=== PATIENT | male | born 1970 | race Caucasian/White ===

== ENCOUNTER 2017-01-01 22:59 | Inpatient (IN) ==
[2017-01-01] MEDS ORDERED: NS 1,000 ML IV PRN (23:23)
[2017-01-01] MEDS ORDERED: ZOFRAN IV ONE (23:25)
[2017-01-01 23:48] LABS: BASO% 0.1 % (0.0-0.8); EOS# 0.01 X1000 (0.0-0.7); HEMATOCRIT 53.5 % (42.0-52.0); HEMOGLOBIN 18.3 g/dL (14.0-18.0); IMM GRAN% 0.4 % (0.0-0.5); LYMPH# 2.35 X1000 (1.2-3.4); LYMPH% 10.4 % (20.5-51.1); MANUAL DIFF NEEDED? YES; MCH 30.3 PG (27-31); MCHC 34.2 g/dL (33-37); MCV 88.6 FL (81-99); MONO# 4.32 X1000 (0.11-0.59); MONO% 19.2 % (1.7-9.3); MPV 10.8 FL (7.4-10.4); NEUT% 69.9 % (42.2-75.2); PLT 214 X1000 (130-400); RBC 6.04 XMIL (4.7-6.1)
[2017-01-02] MEDS ORDERED: ZOSYN 3.375 GM/NS 3.375 GM/50 ML IVPB ONE (00:04)
[2017-01-02 00:05] LABS: BE -19.9 mmoll (-3.0-3.0); BLOOD TYPE ARTERIAL; METHB 1.6 % (0.0-1.5); O2(CT) 24.3 mL/dL (15.0-23.0); PCO2(98.6) 23 mmHg (35-45); PO2(98.6) 125 mmHg (60-100); SAMPLE BLOOD; THB 18.1 g/dL (11.5-17.4)
[2017-01-02 00:09] LABS: ALLEN TEST NO; DRAW SITE R FEMORAL; MODALITY VENTIMASK; pH(98.6) 7.12 (7.35-7.45)
[2017-01-02] MEDS ORDERED: ZOSYN 3.375 GM/NS 3.375 GM/50 ML IVPB IV ONE (00:11)
[2017-01-02] MEDS ORDERED: NS 1,000 ML IV PRN (00:12)
[2017-01-02 00:17] LABS: BANDS 10 % (0-1); BASO 0 % (0-1); EOS 0 % (1-10); LYMPHS 11 % (21-51); MONO 12 % (1-9)
[2017-01-02] MEDS ORDERED: ZOFRAN IV PRN (00:23)
[2017-01-02] MEDS ORDERED: NS 1,000 ML IV ONE ×3 (00:23→08:18)
--- NOTE | 2017-01-02 00:32 | PROVIDER DOCUMENTATION ---
This chart was entered by Susy Ahmadi Scribe, acting as scribe for Jj Barahona MD. HPI-General Adult - General Chief Complaint: Seizure Stated Complaint: SEIZURE, HX OF SAME Time Seen by Provider: 01/01/17 23:13 Source: other (residential staff) Unable to obtain history due to:: urgency (pt non-verbal) Allergies/Adverse Reactions: Patient Allergies Allergy/AdvReac Type Severity Reaction Status Date / Time methylphenidate HCl * Allergy Unknown Verified 04/27/14 14:40 [From Ritalin] Home Medications: Home Medication List Medication Instructions Recorded Confirmed Last Taken Type Divalproex [Depakote] 1,000 mg PO BID 04/27/14 04/28/14 01/01/17 History Fluoxetine [Prozac] 20 mg PO DAILY 04/27/14 04/28/14 01/01/17 History Fluticasone 27.5 Mcg Nasal Spr 1 spray MADELYN DAILY 04/27/14 04/28/14 01/01/17 History [Veramyst Nasal [place]] Levetiracetam [Keppra] 500 mg PO BID 04/27/14 04/28/14 01/01/17 History Loratadine 10 mg PO DAILY 04/27/14 04/28/14 01/01/17 History Omeprazole 40 mg PO DAILY 04/27/14 04/28/14 01/01/17 History Quetiapine Fumarate [Seroquel] 200 mg PO TID 04/27/14 04/28/14 01/01/17 History Topiramate [Topamax] 200 mg PO BID 04/27/14 04/28/14 01/01/17 History Ascorbic Acid [Vitamin C] 250 mg PO DAILY 01/01/17 01/01/17 01/01/17 History Icosapent Ethyl [Vascepa] 1,000 mg PO BID 01/01/17 01/01/17 01/01/17 History Levothyroxine [Synthroid] 25 mcg PO QAM 01/01/17 01/01/17 01/01/17 History Pravastatin Sodium 40 mg PO DAILY 01/01/17 01/01/17 01/01/17 History - History of Present Illness -Gen Adult Nature of Presenting Problems: Per residential staff, pt has had diarrhea since about 1400 this afternoon and has not eaten or drank anything since before lunch. She states that pt tonight, while they were changing his bed, he went limp with 2 other staff members holding him up and had a blank stare. She states before that his breathing had become different and mental status changed. Severity: reports: moderate Onset/Duration: reports: this afternoon Timing: reports: still present Associated Symptoms: reports: diarrhea Similar Symptoms Previously?: No Recently seen or treated by another doctor?: No Review of Systems - Adult - REVIEW OF SYSTEMS - ADULT ROS:: unobtainable per condition (pt non-verbal) Constitutional: reports: no symptoms reported Eyes: reports: no symptoms reported Ears, Nose, Mouth & Throat: reports: no symptoms reported Cardiovascular: reports: no symptoms reported Respiratory: reports: no symptoms reported Gastrointestinal: reports: diarrhea. denies: vomiting Genitourinary: reports: no symptoms reported Musculoskeletal: reports: no symptoms reported Integumentary: reports: no symptoms reported Neurological: reports: no symptoms reported Psychiatric: reports: no symptoms reported Endocrine: reports: no symptoms reported Hematologic/Lymphatic: reports: no symptoms reported Allergic/Immunologic: reports: no symptoms reported All Other Systems: Reviewed and Negative Past History - Adult - PAST MEDICAL HISTORY-ADULT Review of Records: reports: Nursing Assessment Review, Medications Reviewed Major Childhood Illnesses: reports: denies history Cardiovascular: reports: HTN Neurological: reports: Seizures/Epilepsy Psychiatric: reports: other (MR) - PRIOR SURGERIES/PROCEDURES Surgical/Procedure History: reports: none - IMMUNIZATION STATUS Childhood Immunizations: See Nurse Assessment Flu Vaccine: See Nurse Assessment - SOCIAL HISTORY Smoking: non-smoker Substance Use: none/never Alcohol Use Frequency: never Physical Exam-General - PHYSICAL EXAM-ADULT Initial Vital Signs Reviewed: Yes - CONSTITUTIONAL General Appearance: alert - RESPIRATORY Respiratory: rhonchi (upper airway), other (tachypnea) - CARDIOVASCULAR Cardiovascular: tachycardia - GASTROINTESTINAL (ABDOMEN) Abdominal Exam: non tender, abnormal bowel sounds (hyperactive) - SKIN Integumentary: mottled, pallor Progress - PLAN OF CARE/RESULTS Progress/Plan/Lab Results: Vital Signs - 8 hr 01/01/17 23:01 Temperature 98.0 F Orders Category Date Time Status CBC WITH DIFF [HEME] Stat Lab 01/01/17 23:13 Ordered COMPREHENSIVE METABOLIC PANEL [CHEM] Stat Lab 01/01/17 23:[address] W/POSS RFLX CULT [URINALYSIS] Stat Lab 01/01/17 23:13 Uncollected Result Diagrams: 01/01/17 23:30 - CONSULTS/PCP/HOSPITALIST Notification #1 *Consult/PCP/Hospitalist*: Dr. Ospina(hospitalist) Time Discussed: 00:16 Consult Disposition: Admit Departure - Departure Time of Disposition Decision: 00:30 DIAGNOSIS: Sepsis with hypotension Disposition: ADMITTED INPATIENT 09 Certified Medical Emergency: Emergent Condition: Serious Referrals and Follow-Ups: Sandra Trujillo [Primary Care Provider] - - Critical Care Note This patient required my direct & personal management of CC.: Yes Total Time (mins): 120 Critical Care Statement: This patient required my direct personal management to treat or rule out processes, the absence of which, could potentiallly result in sudden, clinically significant life or limb threatening deterioration. This chart was documented by the indicated scribe, (Susy Ahmadi Scribe) and accurately reflects the services I performed and decisions made by me, Jj Barahona MD, as attested by the provider's signature.
[2017-01-02 01:13] LABS: BILIRUBIN URINE 2+ (NEGATIVE); BLOOD URINE 4+ (NEGATIVE); CLARITY CLEAR (CLEAR); COLOR BROWN; GLUCOSE URINE NEGATIVE (NEGATIVE); LEUKOCYTES URINE 1+ (NEGATIVE); NITRITE URINE POSITIVE (NEGATIVE); PH URINE 6.5; PROTEIN URINE 1+(30 mg/dL) mg/dL (NEGATIVE)
[2017-01-02 01:15] LABS: URINE CULTURE PL NEEDED? YES; URINE EPITHELIAL CELLS <10 /HPF (<10); URINE WBC <10 /HPF (<10)
[2017-01-02 01:16] LABS: URINE SOURCE CATH; UROBILINOGEN URINE 4+(12 mg/dL)
[2017-01-02 01:22] LABS: AGAP 17; ALBUMIN 2.4 g/dL (3.5-5.0); ALKALINE PHOSPHATASE 42 U/L (32-122); BUN 45 mg/dL (8-22); CALCIUM 7.5 mg/dL (8.8-10.2); CHLORIDE 115 mmol/L (98-107); COSMO 298; GOT 16 U/L (10-34); GPT 8 U/L (10-44); POTASSIUM 3.2 mmol/L (3.5-5.1); SODIUM 143 mmol/L (136-145); TCO2 12 mmol/L (25-35); TOTAL PROTEIN 5.2 g/dL (6.3-8.3)
[2017-01-02 05:05] LABS: OCCULT BLOOD 1 POSITIVE (NEGATIVE)
[2017-01-02] MEDS ORDERED: LEVOPHED 8 MG in D5 1/2 NS 250 ML IV SCH (06:30)
[2017-01-02 06:42] LABS: MANUAL DIFF NEEDED? NO
[2017-01-02 06:54] LABS: BE -14.9 mmoll (-3.0-3.0); BLOOD TYPE ARTERIAL; DRAW SITE R BRACHIAL; METHB 1.8 % (0.0-1.5); O2(CT) 21.6 mL/dL (15.0-23.0); PCO2(98.6) 23 mmHg (35-45); PO2(98.6) 85 mmHg (60-100); SAMPLE BLOOD; SAO2 96.6 % (95.0-100.0); THB 16.4 g/dL (11.5-17.4); pH(98.6) 7.25 (7.35-7.45)
[2017-01-02 06:57] LABS: EOS# 0.01 X1000 (0.0-0.7); EOS% 0.1 % (0.0-10.0); HEMATOCRIT 47.8 % (42.0-52.0); HEMOGLOBIN 16.1 g/dL (14.0-18.0); IMM GRAN# 0.02 X1000 (0.0-0.04); IMM GRAN% 0.2 % (0.0-0.5); LYMPH# 0.94 X1000 (1.2-3.4); LYMPH% 11.2 % (20.5-51.1); MCH 30.4 PG (27-31); MCHC 33.7 g/dL (33-37); MCV 90.2 FL (81-99); MONO# 1.19 X1000 (0.11-0.59); MONO% 14.1 % (1.7-9.3); MPV 11.7 FL (7.4-10.4); NEUT% 74.4 % (42.2-75.2); PLT 116 X1000 (130-400)
[2017-01-02 06:58] LABS: ALLEN TEST NO; MODALITY VENTIMASK
[2017-01-02] MEDS ORDERED: ZOSYN 3.375 GM/NS 3.375 GM/50 ML IVPB IV SCH (07:00)
[2017-01-02 07:24] LABS: AGAP 19; BUN 48 mg/dL (8-22); CALCIUM 8.1 mg/dL (8.8-10.2); CHLORIDE 116 mmol/L (98-107); COSMO 305; POTASSIUM 4.2 mmol/L (3.5-5.1); SODIUM 146 mmol/L (136-145); TCO2 12 mmol/L (25-35)
[2017-01-02] MEDS ORDERED: VANCOMYCIN IV PER PHARMACY MISC SCH (08:00)
--- NOTE | 2017-01-02 08:52 | Diag Imaging Result Document ---
PROCEDURE NAME: CHEST-PORTABLE - 01/02/2017 SINGLE FRONTAL RADIOGRAPH OF THE CHEST: COMPARISON: 04/27/2014. FINDINGS: Inspiration is very suboptimal. There is opacity at the left lung base suggesting a likely effusion with adjacent atelectasis and/or infiltrate. The right lung appears to be clear. Cardiac silhouette is grossly unremarkable considering AP technique. IMPRESSION: 1. Opacification at the left lung base suggesting a possible effusion with adjacent atelectasis and/or infiltrate. Consider followup PA and lateral radiograph. 2. Low lung volumes.
[2017-01-02] MEDS ORDERED: SODIUM BICARBONATE 8.4% 150 MEQ in D5W 1,000 ML IV SCH (09:00)
[2017-01-02] MEDS ORDERED: VANCOMYCIN 2,200 MG in NS 500 ML IV ONE (09:00)
--- NOTE | 2017-01-02 09:33 | Diag Imaging Result Document ---
PROCEDURE NAME: ABDOMEN/PELVIS W/CONTRAST - 01/02/2017 CT ABDOMEN AND PELVIS WITH IV CONTRAST: COMPARISON: None available. FINDINGS: There is left basilar atelectasis and trace atelectasis at the right lung base. There is focal mild thickening at the fundus of the gallbladder. It is nonspecific. Consider gallbladder ultrasound followup. There is no surrounding inflammatory change. There are multiple prominent stones involving the left renal collecting system with a staghorn calculus at the lower pole. The left kidney is atrophic as compared to the right. There is no evidence of hydronephrosis, however. There is also a punctate nonobstructing intrarenal stone in the right kidney. There is thickening and inflammatory change involving the sigmoid colon and the rectum consistent with nonspecific colitis and proctitis. Etiology are most likely infectious or inflammatory. There is a small amount of fluid that is layering in the pelvis. There are fluid- filled loops of small bowel and a few air-fluid levels. There is nothing that would necessarily indicate obstruction. This is likely due to ileus. The urinary bladder is nondistended and a Almazan catheter is in place. The remainder of the solid viscera of the abdomen and pelvis and the remainder of the GI tract is essentially unremarkable. IMPRESSION: 1. Nonspecific proctitis and sigmoid colitis as described, most likely infectious or inflammatory. 2. Left nephrolithiasis with a large nonobstructing staghorn calculus on the left and left renal atrophy. 3. Nonspecific focal thickening at the fundus of the gallbladder. Please see above discussion. 4. Other incidental/nonacute findings detailed above. [facility]
[2017-01-02] MEDS: SODIUM BICARBONATE 8.4% 150 MEQ in D5W 1,000 ML IV SCH (10:14)
[2017-01-02] MEDS: LEVOPHED 16 MG in D5 1/2 NS 500 ML IV SCH ×2 (11:41→22:44)
[2017-01-02] MEDS: TYLENOL PR PRN ×3 (12:04→23:56)
[2017-01-02] MEDS: FLAGYL 500 MG/NS 500 MG/100 ML IVPB IV SCH ×2 (13:43→20:24)
[2017-01-02] MEDS ORDERED: SODIUM CHLORIDE 0.9% INJ PRN (13:45)
--- NOTE | 2017-01-02 14:24 | HISTORY AND PHYSICAL ---
CHIEF COMPLAINT: Seizure, altered mental status, and diarrhea. HISTORY OF PRESENT ILLNESS: This is a 46-year-old male with a past medical history of mental retardation, seizure disorder, hypertension, who was brought in to the hospital with a chief complaint of diarrhea that started yesterday around 2 p.m. All this information was collected by the senior care staff. Apparently, also the patient has not eaten or drank anything since yesterday before lunch. Apparently this patient also had a seizure. This patient went limp with two other staff members holding him up and had a blank stare. Right before that happened, he started having tachypnea and mental status changes. At the emergency department, he was found to have a positive urinalysis for infection, occult blood in the stool, a pH of 7.12, with a bicarb of 9.3, and lactate of 5.5. A CT of the abdomen was performed today that showed nonspecific proctitis and sigmoid colitis, likely infectious or inflammatory. Also, he has left nephrolithiasis with a large non-obstructive staghorn calculus on the left and left renal atrophy. Nonspecific focal thickening at the fundus of the gallbladder. This patient is currently in the ICU unit using a nonrebreathing mask and on pressors. He was admitted because of sepsis and altered mental status. REVIEW OF SYSTEMS: The 14 point of review of systems were reviewed. All negative, except as per history of present illness. HOME MEDICATIONS: Depakote 1000 mg p.o. b.i.d., Prozac 20 mg p.o. daily, fluticasone 1 spray nasally daily, Keppra 500 mg p.o. b.i.d., loratadine 10 mg p.o. daily, omeprazole 40 mg p.o. daily, Seroquel 200 mg p.o. t.i.d., Topamax 200 mg p.o. b.i.d., vitamin C 250 mg p.o. daily, Vascepa 1000 p.o. b.i.d., levothyroxine 25 mg p.o. q.a.m., and pravastatin 40 mg p.o. daily. PAST MEDICAL HISTORY: Mental retardation, hypertension, seizure disorder, and hypothyroidism. PAST SURGICAL HISTORY: None. SOCIAL HISTORY: Nonsmoker. No drugs. No alcohol. PHYSICAL EXAMINATION: HEENT: Head normocephalic. No trauma. Pupils equal, round, and reactive to light and accommodation. NECK: Supple. No jugular venous distention. No masses. Central trachea. CHEST: Bilateral coarse breath sounds. Decreased breath sounds at the bases with rales. ABDOMEN: Soft, distended, generalized tenderness to palpation. Positive bowel sounds. EXTREMITIES: No edema. No clubbing. No cyanosis. NEUROLOGICAL EXAMINATION: This patient is lethargic. He has some reaction with pain stimulation and movement. VITAL SIGNS: Temperature 101.6 degrees, pulse 164, respiratory rate 47, blood pressure 97/58, O2 saturation 92 on a Venturi mask, 50% oxygen flow. LABORATORY: On admission, WBC 22.5, hemoglobin 18.3, hematocrit 53.5, platelets 214,000, bands 10. On 01/02/2017; sodium 146, potassium 4.2, chloride 116, bicarbonate 12, BUN 48, creatinine 1.1, glucose 127. Calcium 8.1, albumin 2.4. ASSESSMENT AND PLAN: 1. Septic shock, likely related to urinary tract infection and/or infectious colitis. This patient has been placed on vancomycin, metronidazole, and levofloxacin. We will continue checking the CBC and CMP daily. 2. Respiratory failure. This patient, at this moment, has a nonrebreathing mask and his oxygen saturation has been stable, but this patient is tachypneic. We will continue to monitor. We will continue providing IV fluids as well. 3. Metabolic encephalopathy on a patient with mental retardation. As per the caregivers, this is not his baseline and this is likely related to septic shock and infection. 4. Metabolic encephalopathy, likely secondary to septic shock, plus infection. Continue to monitor. 5. Colitis at the level of the sigmoid, likely related to an infectious process versus inflammation. We will continue with the antibiotics. 6. Urinary tract infection. This patient has been placed on levofloxacin. Also this patient is being covered with vancomycin. 7. Dehydration. Continue with IV fluids. This patient also has been placed on bicarbonate drip. 8. Thrombocytopenia. To monitor. 9. Mental retardation. Aware. 10. Hypertension. Actually, this patient is having low blood pressure. 11. Hypothyroidism. I will put this patient on IV levothyroxine. Normally he is getting 25 mcg daily p.o. I will put this patient on 12.5 IV daily. CODE STATUS: This patient is DNR level 2. We are allowed only to use medications with him. Further recommendations depending on this patient's hospital course. cc: Emory Garza MD
[2017-01-02] MEDS ORDERED: ALBUMIN 25% IV ONE (14:37)
[2017-01-02] MEDS: LEVAQUIN 750 MG/D5W 750 MG/150 ML IVPB IV SCH (15:34)
--- NOTE | 2017-01-02 16:31 | EKG Report ---
Test Performed on : 01/02/2017 3:04:46 PM Test Reason : ST vs afib Blood Pressure : / mmHG Vent. Rate : 162 BPM Atrial Rate : 163 BPM P-R Int : 120 ms QRS Dur : 078 ms QT Int : 316 ms P-R-T Axes : 004 -54 071 degrees QTc Int : 518 ms Sinus tachycardia. with occasional premature ventricular complexes. Left anterior fascicular block Anterior infarct , age undetermined ST \T\ T wave abnormality, consider lateral ischemia Abnormal ECG When compared with ECG of 28-APR-2014 07:37, premature ventricular complexes. are now present Vent. rate has increased BY 72 BPM Anterior infarct is now present T wave inversion no longer evident in Anterior leads Confirmed by Asaf Peterson MD ([id number]) on 01/23/2017 10:13:00 PM
[2017-01-02] MEDS: MORPHINE IV PRN ×2 (20:24→23:56)
[2017-01-03] MEDS: FLAGYL 500 MG/NS 500 MG/100 ML IVPB IV SCH ×4 (01:48→19:50)
[2017-01-03] MEDS: TYLENOL PR PRN (04:08)
[2017-01-03] MEDS: MORPHINE IV PRN (04:08)
[2017-01-03] MEDS: SYNTHROID IV SCH (06:11)
[2017-01-03 06:49] LABS: BASO% 0.2 % (0.0-0.8); EOS# 0.04 X1000 (0.0-0.7); EOS% 0.8 % (0.0-10.0); HEMATOCRIT 40.6 % (42.0-52.0); HEMOGLOBIN 13.5 g/dL (14.0-18.0); IMM GRAN# 0.38 X1000 (0.0-0.04); IMM GRAN% 7.9 % (0.0-0.5); LYMPH# 0.66 X1000 (1.2-3.4); LYMPH% 13.6 % (20.5-51.1); MANUAL DIFF NEEDED? YES; MCH 30.3 PG (27-31); MCHC 33.3 g/dL (33-37); MONO# 1.01 X1000 (0.11-0.59); MONO% 20.9 % (1.7-9.3); MPV 11.3 FL (7.4-10.4); NEUT% 56.6 % (42.2-75.2); PLT 82 X1000 (130-400); RBC 4.46 XMIL (4.7-6.1)
[2017-01-03 07:11] LABS: AGAP 16; BUN 50 mg/dL (8-22); CALCIUM 7.8 mg/dL (8.8-10.2); CHLORIDE 113 mmol/L (98-107); COSMO 301; SODIUM 144 mmol/L (136-145); TCO2 14 mmol/L (25-35)
[2017-01-03 07:12] LABS: POTASSIUM 2.5 mmol/L (3.5-5.1)
[2017-01-03 07:24] LABS: BANDS 10 % (0-1); LYMPHS 10 % (21-51); MONO 20 % (1-9)
[2017-01-03] MEDS: POTASSIUM CHLORIDE 20 MEQ/SWI 20 MEQ/100 ML IVPB IV SCH ×4 (07:50→22:55)
[2017-01-03] MEDS ORDERED: VANCOMYCIN 1,600 MG in NS 250 ML IV SCH (09:00)
--- NOTE | 2017-01-03 09:45 | PROGRESS NOTE ---
DATE: 01/03/2017 SUBJECTIVE: This patient is resting comfortably on the bed. His heart rate is around 130 but is much better compared with yesterday, yesterday was 160s. Respiratory rate decreased from 40s to 20s. He is not complaining of pain at this moment but this patient has mental retardation. His belly is still mildly distended and painful to palpation. Yesterday I talked to his sister and she said that he has a past medical history of Crohn's disease. I did not have that on my records. I am not quite sure if this patient is having a flare. Since this patient is getting better and since this patient looks better today, I will continue with the same management. I will add Clinimix to his medications. OBJECTIVE: Vital Signs: Temperature 100.9 degrees, pulse 142, respiratory rate 28, blood pressure 91/62, oxygen saturation 97% on BiPAP. HEENT: Head normocephalic. No trauma. PERRLA. Neck: Supple. No JVD. No masses. Central trachea. Chest: Bilateral coarse breath sounds with scattered rhonchi and decreased breath sounds at the bases. Abdomen: Soft. Mild to moderately distended. Generalized tenderness to palpation. Positive bowel sounds. Extremities: No edema. No clubbing. No cyanosis. Neurological: This patient is lethargic. He has a baseline mental retardation. He moves with pain stimulation. LABORATORY: WBC 4.8, hemoglobin 13.5, hematocrit 40.6, platelets 82,000. Sodium 144, potassium 2.5, chloride 113, bicarbonate 14, BUN 50, creatinine 1.2, glucose 116, calcium 7.8. ASSESSMENT AND PLAN: 1. Septic shock. This patient is still on pressors. This is likely related to UTI and pneumonia and/or infectious colitis. This patient has been placed on vancomycin, metronidazole, and levofloxacin. Will continue checking his CBC and CMP daily. His vital signs look better today. 2. Respiratory failure. This patient at this moment is on a BiPAP machine. We will continue with the same management. 3. Metabolic encephalopathy in a patient with mental retardation. As per the caregivers, this is not his baseline. This is likely related to septic shock. 4. Metabolic acidosis, likely secondary to septic shock. Continue to monitor. 5. Proctocolitis involving the sigmoid colon. Likely related to an infectious process versus inflammation. The sister told me that he has a past medical history of Crohn's disease; I did not have that on my records. I am not going to start steroids at this moment. This patient is getting better with this treatment but he has pain upon palpation. Probably we need to start treatment in the near future. 6. Urinary tract infection. This patient has been placed on antibiotics. Continue with the same management. 7. Dehydration. Continue with IV fluids. This patient is on a bicarbonate drip and Clinimix. 8. Thrombocytopenia. Monitor. 9. Mental retardation. Aware. 10. Hypertension. Actually this patient is on pressors for low blood pressure. 11. Hypothyroidism. Continue with IV levothyroxine. 12. Code status. This patient is DNR level 2. CRITICAL CARE TIME: 40 minutes. cc: Emory Garza MD
[2017-01-03] MEDS: SODIUM BICARBONATE 8.4% 150 MEQ in D5W 1,000 ML IV SCH (09:49)
[2017-01-03] MEDS ORDERED: CLINIMIX E 4.25%-5% SOLUTION 1,000 ML IV SCH (12:58)
[2017-01-03] MEDS: LEVAQUIN 750 MG/D5W 750 MG/150 ML IVPB IV SCH (16:05)
[2017-01-04] MEDS: FLAGYL 500 MG/NS 500 MG/100 ML IVPB IV SCH ×4 (00:30→18:34)
[2017-01-04] MEDS: SYNTHROID IV SCH (06:31)
[2017-01-04 07:08] LABS: BASO% 0.3 % (0.0-0.8); EOS# 0.03 X1000 (0.0-0.7); EOS% 0.8 % (0.0-10.0); HEMATOCRIT 36.3 % (42.0-52.0); HEMOGLOBIN 12.4 g/dL (14.0-18.0); IMM GRAN# 0.04 X1000 (0.0-0.04); LYMPH# 0.61 X1000 (1.2-3.4); LYMPH% 15.8 % (20.5-51.1); MANUAL DIFF NEEDED? YES; MCH 30.9 PG (27-31); MCHC 34.2 g/dL (33-37); MCV 90.5 FL (81-99); MONO# 0.39 X1000 (0.11-0.59); MONO% 10.1 % (1.7-9.3); MPV 10.7 FL (7.4-10.4); PLT 58 X1000 (130-400); RBC 4.01 XMIL (4.7-6.1)
[2017-01-04 07:46] LABS: AGAP 10; BUN 27 mg/dL (8-22); CALCIUM 8.2 mg/dL (8.8-10.2); CHLORIDE 117 mmol/L (98-107); COSMO 299; POTASSIUM 3.5 mmol/L (3.5-5.1); SODIUM 147 mmol/L (136-145); TCO2 20 mmol/L (25-35)
[2017-01-04] MEDS ORDERED: KLOR-CON PO ONE (08:33)
[2017-01-04 08:52] LABS: BANDS 8 % (0-1); LYMPHS 18 % (21-51)
[2017-01-04 08:53] LABS: HYPOCHROM OCCASIONAL; MONO 6 % (1-9)
[2017-01-04] MEDS: D5W 1,000 ML IV SCH ×2 (09:31→22:21)
[2017-01-04] MEDS: POTASSIUM CHLORIDE 20 MEQ/SWI 20 MEQ/100 ML IVPB IV SCH ×2 (10:25→12:24)
--- NOTE | 2017-01-04 12:46 | PROGRESS NOTE ---
DATE: 01/04/2017 SUBJECTIVE: Today, Mr. Dennison looks a whole lot better. There was a sitter from the long-term at his bedside. He continues to be shouting and groaning "robert kunz," but he calms down and is able to eat ice with the sitter. OBJECTIVE: Vital signs: Blood pressure 127/73, pulse 103, respirations 22, temperature 98.3 degrees. General: Mr. Dennison is a 46-year-old male. He was in bed. Did not seem to be in any remarkable distress. HEENT: Mucosa pink and moist. Anicteric. Acyanotic. Neck: Supple. Chest: Good air entry bilaterally with a few bibasilar crepitations. Cardiovascular: Regular rate and rhythm. Abdomen: Soft, slightly distended, but nontender. Bowel sounds are present. Extremities: No pedal edema. Central Nervous System: Patient is alert. He is nonverbal, but will shout and groan when you move his extremities. LABORATORY DATA: WBC 3.87, hemoglobin 12.4, platelet count 58,000. There is 8% bands on the peripheral smear. Chemistry: Sodium 147, potassium 3.5, chloride 117, bicarbonate 28, BUN 27, and creatinine 0.4. Stool occult blood is positive. So far, blood cultures have been negative. IMAGING STUDIES: A chest x-ray showed opacification at the lung bases suggestive of possible effusion with adjacent atelectasis and/or infiltrates. Low lung volumes. A CT scan of the abdomen and pelvis showed nonspecific proctitis and sigmoid colitis, as described, most likely infectious. There is left nephrolithiasis. ASSESSMENT ON PRESENTATION: 1. Septic shock. The patient needed pressors. Is currently off pressors. Blood cultures have all been negative. I think the source of this is coming from the severe left-sided colitis. 2. Respiratory failure (hypoxemic) which I think is driven by the sepsis. 3. Severe metabolic acidosis due to lactic acid from sepsis. 4. Left-sided colitis (sigmoid and proctocolitis). This is deemed infectious; however, inflammatory bowel disease cannot be excluded at this point. We will continue with the current antibiotics. I do not see any stool cultures done, but the patient is doing a whole lot better with the IV antibiotics. I think at a later date the patient would have to have a scope to make sure there is no inflammatory bowel disease. Will send off the inflammatory bowel disease panel for further testing. 5. Hypernatremia with hyperchloremia. We will discontinue the bicarbonate and only use D5 for baseline hydration to address the tonicity and the hyperchloremia. 6. Thrombocytopenia. This continues to worsen. I reviewed the current medication profile and I do not see anything that could potentially cause that. I think this is all driven by the severe sepsis. We will keep a very close eye on that. Of note, patient is not on any heparin or any blood thinner. Will be using the compression stockings for deep vein thrombosis prophylaxis. 7. Dehydration. Will continue IV fluids. 8. Mental retardation, needing total care. 9. Hypothyroidism. We will continue with the IV levothyroxine. So, in general, I think Mr. Dennison is doing a whole lot better. The chest x-ray and blood cultures have not shown any evidence of pneumonia or Methicillin-resistant Staphylococcus aureus infection. I will therefore go ahead and discontinue the vancomycin. We will, however, continue with the levofloxacin and the metronidazole for the colitis. We will continue with the IV fluids. The patient has shown remarkable improvement. He is tolerating the ice chips, so will go ahead and start feeding him whilst we will be cutting down on the Clinimix. cc: Jovani Yung MD
[2017-01-04] MEDS: LEVAQUIN 750 MG/D5W 750 MG/150 ML IVPB IV SCH (15:47)
[2017-01-04] MEDS: TYLENOL PO PRN (18:43)
[2017-01-05] MEDS: FLAGYL 500 MG/NS 500 MG/100 ML IVPB IV SCH ×4 (00:48→20:30)
[2017-01-05] MEDS: TYLENOL PO PRN ×2 (02:09→12:06)
[2017-01-05] MEDS: SYNTHROID IV SCH (06:00)
[2017-01-05 08:31] LABS: AGAP 11; BUN 16 mg/dL (8-22); CALCIUM 8.3 mg/dL (8.8-10.2); CHLORIDE 115 mmol/L (98-107); COSMO 288; IRON SATURATION 35 %; MAGNESIUM 1.7 mg/dL (1.5-2.7); POTASSIUM 3.6 mmol/L (3.5-5.1); SODIUM 144 mmol/L (136-145); TCO2 18 mmol/L (25-35); TIBC 131 ug/dL; TOTAL IRON 46 ug/dL (53-167); UNBOUND IRON 85 ug/dL (112-346)
[2017-01-05 08:46] LABS: BASO% 0.2 % (0.0-0.8); EOS# 0.05 X1000 (0.0-0.7); HEMATOCRIT 35.2 % (42.0-52.0); HEMOGLOBIN 11.9 g/dL (14.0-18.0); IMM GRAN# 0.03 X1000 (0.0-0.04); IMM GRAN% 0.6 % (0.0-0.5); LYMPH# 1.06 X1000 (1.2-3.4); LYMPH% 20.5 % (20.5-51.1); MANUAL DIFF NEEDED? YES; MCHC 33.8 g/dL (33-37); MCV 88.7 FL (81-99); MONO# 0.48 X1000 (0.11-0.59); MONO% 9.3 % (1.7-9.3); MPV 10.8 FL (7.4-10.4); NEUT% 68.4 % (42.2-75.2); PLT 84 X1000 (130-400); RBC 3.97 XMIL (4.7-6.1)
[2017-01-05] MEDS ORDERED: MAGNESIUM SULFATE 2 GM/S.W.I. 2 GM/50 ML IVPB IV ONE (10:10)
[2017-01-05 10:22] LABS: LYMPHS 21 % (21-51); MONO 5 % (1-9)
--- NOTE | 2017-01-05 10:57 | PROGRESS NOTE ---
DATE: 01/05/2017 SUBJECTIVE: Today Mr. Dennison was very delightful and smiling. There is a picking crew supervisor at the bedside, who said the patient has been very happy this morning. OBJECTIVE: Vital signs: Blood pressure is 118/69, pulse of 100, respirations 30, temperature is 97.9 degrees. Of note patient had a mild elevation of temperature of 100.6 degrees earlier this morning. Also from the nursing staff, they tried to feed the patient some Marfan, and it looks like he took he was going to check on that. General: Mr. Dennison is a 46-year-old male. He is in bed, not seemingly distressed. HEENT: Mucosa is pink and moist. Anicteric. Acyanotic. Neck: Supple. Chest: Air entry is bilaterally reduced. There is diffuse bilateral coarse crackles and rhonchi. Cardiovascular: Regular rate and rhythm. Abdomen: Soft. It is distended and hilar. Patient can grimace and shout when you palpate the abdomen. COOK FISHING VESSEL: Patient is awake and alert. He is nonverbal. LABORATORY DATA: WBC is 5.18, hemoglobin is 11.9, platelet count of 84, slightly coming up. Chemistry: Sodium is 144, potassium is 3.6, chloride is 115 slightly improved from yesterday with a bicarbonate of 18. The calcium is 8.3, phosphorus is 2.0, magnesium is 1.7. ASSESSMENT: 1. Septic shock. The patient is now off pressors. Blood pressure continues to be stable. So far blood cultures have been negative for 24 hours and urine culture is also negative. We suspect the source of this is from the left side colitis. 2. Severe lactic acidosis on presentation due to sepsis. 3. Severe left-sided colitis (sigmoid and proctocolitis). Patient is currently on levofloxacin and metronidazole. Seems to be doing a lot better. 4. Acute hypoxemic respiratory failure. I think this is likely due to aspiration pneumonia. We would repeat a chest x-ray. We will also get swallowing evaluation to determine what consistency of food patient will be able to tolerate without any major risk. 5. Hypernatremia and hyperchloremia. This is improving. We will continue with the D 5 baseline hydration of fluid. 6. Thrombocytopenia due to sepsis. This is improving. 7. Mental retardation noted. 8. Hypothyroidism. We will check on the patient's thyroid stimulating hormone. Continue with the current levothyroxine and make the changes accordingly depending on the thyroid stimulating hormone results. 9. Abdominal distention. I think the patient does have some ileus. I just saw that he had made some bowel movement and it is liquid. We would do some stool studies and also do a KUB to make sure that there is not any mechanical obstruction and that the diarrhea we are looking at is not overflow incontinence. We would also make sure we replace all the electrolyte abnormalities, including the borderline low potassium and the low magnesium which could potentially cause ileus. 10. Hypocalcemia with hypophosphatemia. I think this is likely due to underlying vitamin D deficiency. We will go ahead and recheck on that and replace it accordingly. PLAN: In general, Mr. Dennison is clinically stable. We are going to continue with the current antibiotics. I was told he had an episode of possible aspiration and he does have some chest findings, so will do a chest x-ray to follow up on that. We will also consult swallow evaluation. We will do a KUB and make pertinent changes accordingly. cc: Jovani Yung MD
[2017-01-05] MEDS: POTASSIUM CHLORIDE 20 MEQ/SWI 20 MEQ/100 ML IVPB IV SCH ×2 (11:50→13:41)
[2017-01-05] MEDS: D5W 1,000 ML IV SCH (11:50)
[2017-01-05] MEDS ORDERED: VANCOMYCIN IV PER PHARMACY MISC SCH (12:15)
--- NOTE | 2017-01-05 13:18 | Diag Imaging Result Document ---
PROCEDURE NAME: CHEST-PORTABLE - 01/05/2017 PORTABLE CHEST 2 VIEWS: COMPARISON: Compared to 01/02/2017. FINDINGS: Poor inspiratory effort. There is atelectasis or an infiltrate in the left base with a small effusion. Heart is borderline mildly prominent. The exam is unchanged from a prior study. IMPRESSION: Stable chest. ABDOMEN 2 VIEWS: FINDINGS: There are multiple air-distended loops of bowel. No organomegaly. There are left abdominal calcifications which may be renal stones. This may be on the skin surface. IMPRESSION: Air-distended loops of bowel representing an ileus or distal obstruction. [facility]
[2017-01-05] MEDS: LEVAQUIN 750 MG/D5W 750 MG/150 ML IVPB IV SCH (13:44)
[2017-01-05] MEDS ORDERED: VANCOMYCIN 2,200 MG in NS 500 ML IV ONE (14:00)
[2017-01-05 16:02] LABS: FERRITIN 844 ng/mL (30-400)
[2017-01-05] MEDS: OFIRMEV 1000 MG/ISOTONIC SOLN 1,000 MG/100 ML BOTTLE IV PRN ×2 (16:34→23:21)
--- NOTE | 2017-01-05 21:43 | Diag Imaging Result Document ---
PROCEDURE NAME: CHEST/ABD TUBE PLACEMENT - 01/05/2017 CHEST AND ABDOMEN SINGLE VIEW: COMPARISON: Compared to studies performed earlier. FINDINGS: Interval placement of a nasogastric tube. This overlies the esophagus and stomach. This is in good position. IMPRESSION: Nasogastric tube within the stomach.
[2017-01-06] MEDS ORDERED: VANCOMYCIN 1,700 MG in NS 250 ML IV SCH (02:00)
[2017-01-06] MEDS: FLAGYL 500 MG/NS 500 MG/100 ML IVPB IV SCH ×4 (02:05→20:06)
[2017-01-06] MEDS: D5W 1,000 ML IV SCH ×3 (02:17→17:45)
[2017-01-06] MEDS: SYNTHROID IV SCH (07:00)
[2017-01-06] MEDS: OFIRMEV 1000 MG/ISOTONIC SOLN 1,000 MG/100 ML BOTTLE IV PRN (07:02)
[2017-01-06 09:44] LABS: MANUAL DIFF NEEDED? NO
[2017-01-06 10:02] LABS: BASO% 0.8 % (0.0-0.8); EOS# 0.05 X1000 (0.0-0.7); EOS% 1.1 % (0.0-10.0); HEMATOCRIT 34.9 % (42.0-52.0); HEMOGLOBIN 11.7 g/dL (14.0-18.0); IMM GRAN# 0.02 X1000 (0.0-0.04); IMM GRAN% 0.4 % (0.0-0.5); LYMPH# 1.18 X1000 (1.2-3.4); LYMPH% 24.8 % (20.5-51.1); MCH 30.2 PG (27-31); MCHC 33.5 g/dL (33-37); MCV 90.2 FL (81-99); MONO# 0.66 X1000 (0.11-0.59); MONO% 13.9 % (1.7-9.3); MPV 10.2 FL (7.4-10.4); PLT 78 X1000 (130-400); RBC 3.87 XMIL (4.7-6.1)
[2017-01-06 10:14] LABS: AGAP 11; ALBUMIN 2.4 g/dL (3.5-5.0); ALKALINE PHOSPHATASE 57 U/L (32-122); BUN 16 mg/dL (8-22); CALCIUM 8.1 mg/dL (8.8-10.2); CHLORIDE 110 mmol/L (98-107); COSMO 279; GOT 19 U/L (10-34); GPT 25 U/L (10-44); POTASSIUM 3.5 mmol/L (3.5-5.1); SODIUM 139 mmol/L (136-145); TCO2 18 mmol/L (25-35); TOTAL PROTEIN 5.8 g/dL (6.3-8.3)
[2017-01-06] MEDS ORDERED: SYNTHROID IV SCH (11:51)
[2017-01-06] MEDS ORDERED: MAGNESIUM SULFATE 2 GM/S.W.I. 2 GM/50 ML IVPB IV ONE (12:05)
[2017-01-06] MEDS ORDERED: TYLENOL PR PRN ×2 (12:10→17:29)
[2017-01-06] MEDS ORDERED: POTASSIUM CHLORIDE 20 MEQ/SWI 20 MEQ/100 ML IVPB IV SCH (13:00)
[2017-01-06] MEDS: LEVAQUIN 750 MG/D5W 750 MG/150 ML IVPB IV SCH (14:44)
--- NOTE | 2017-01-06 15:37 | PROGRESS NOTE ---
DATE: 01/06/2017 SUBJECTIVE: Today Mr. Dennison is relatively stable. However, I understand he was not very interactive this morning. OBJECTIVE: Vital signs: Blood pressure is 134/78, pulse of 86, respiration is 26, temperature is 99.9 degrees. Of note, patient ran a temperature of 101.1 degrees yesterday at 2322. General: Mr. Dennison is a 46-year-old male. He is in bed, did not seem to be in any remarkable distress. HEENT: Mucosa is pink, slightly dry. Anicteric. Acyanotic. Neck: Supple. Chest: Good air entry bilateral. Cardiovascular: Regular rate and rhythm. Abdomen: Soft, is distended, is hollow to percussion. Bowel sounds are reduced. CAFE SERVER: Patient is awake, continues to be nonverbal. He will groan and moan when you touch him. LABORATORY DATA: WBC is 4.75, hemoglobin is 11.7, platelet count of 78,000. Sodium is 139, potassium is 3.5, chloride is 110, bicarb is 18. C. difficile toxin is negative. ASSESSMENT: 1. Septic shock. The patient presented to the hospital on 01/02/2016 at the time with altered mental status and diarrhea, was hypotensive with a blood pressure of 69/44. He required a few days of pressors, but these have been off for the past 3 days. We think the source is from the left-sided colitis. 2. Severe lactic acidosis on presentation due to sepsis. This has improved. 3. Severe left side colitis (sigmoid and proctocolitis). Patient continues to be on levofloxacin and metronidazole. 4. Abdominal distention. Nasogastric tube is in place for gastric decompression. I think this is an ileus. Abdomen continues to be distended. We will do a KUB to follow up on that. I think patient will need to also be followed up by Gastroenterology and Surgery to closely monitor. 5. Acute hypoxemic respiratory failure. A chest x-ray on 01/05 did show some infiltrate in the left base with small pleural effusions. I think patient does have pneumonia on the left lower base. He is currently on antibiotics. Both vancomycin and levofloxacin for that. 6. Hypernatremia with hyperchloremia. The fluid has been changed to only D5 and she seems to be doing a lot better. 7. Mental retardation, noted. 8. Hypothyroidism. Thyroid stimulating hormones was slightly high which is consistent with inadequate thyroid supplementation. We will therefore go up on the levothyroxine dose. Hopefully that will also help with the abdominal distention/ileus. 9. Vitamin D deficiency. Level is 15.3, which is remarkably low. We will replace this when patient enteral route is reestablished. 10. Folate deficiency. We will also replace this. For now we will use IV folic acid. PLAN: 1. So in general, I think Mr. Dennison is relatively stable, but I think he is going to be needing more care than we can offer him here in [facility]. I think he is going to be needing for sure Gastroenterology to monitor closely the severe right-sided colitis and somewhere along the line, he will need endoscopy. 2. I think if the ileus also does not get improved with the current medical plan , then he would eventually also need to be evaluated by Surgery and either colonoscopy or surgical intervention would need to be evaluated. For now we are going to make sure his potassium is around 4 and his magnesium gets to 2. We will replace that to make sure there is not any underlying electrolyte abnormality causing some of his ileus. 3. I have spoken to the lead worker of housekeeping and laundry in [facility] and the patient will be transferred over there. We are putting in a consult for Gastroenterology and for Surgery for now. We will evaluate the patient on a daily basis to see if he needs any other subspecialty care. 4. The hospitalist marketing production specialist at [facility] has also been notified. Dr. Correa will be in charge of him over there. cc: Jovani Yung MD Critcal time spent 45 minutes [facility]
[2017-01-06] MEDS ORDERED: MORPHINE IV PRN (17:28)
[2017-01-06] MEDS ORDERED: TYLENOL PO PRN (17:29)
[2017-01-06] MEDS ORDERED: ZOFRAN IV PRN (17:30)
[2017-01-06] MEDS ORDERED: VANCOMYCIN IV PER PHARMACY MISC SCH (17:30)
[2017-01-06] MEDS: VANCOMYCIN 1,700 MG in NS 250 ML IV SCH (17:44)
--- NOTE | 2017-01-06 19:12 | Diag Imaging Result Document ---
PROCEDURE NAME: KUB ABDOMEN - 01/06/2017 PORTABLE AP SUPINE ABDOMEN: COMPARISON: 01/05/2013. FINDINGS: There is a nasogastric tube with its tip at the expected location of the mid stomach. There is some persistent gaseous distention of the colon. There are multiple calcifications at the left renal fossa which are compatible with renal stones. IMPRESSION: Persistent gaseous distention of stomach. Multiple left renal stones noted.
--- NOTE | 2017-01-06 21:25 | CONSULTATION ---
DATE OF CONSULTATION: 01/06/2017 HISTORY OF PRESENT ILLNESS: This 46-year-old gentleman with mental retardation who lives in a longterm presented obtunded and was found to be septic of unclear etiology, hypotensive, admitted to ICU was resuscitated and started on antibiotics approximately 48-72 hours ago. He has improved with this. He also appeared to have urinary tract infection as well. Improved with this. CT scan did show some stranding around his rectum and sigmoid concerning for focal colitis but he has been weaned off pressors, overall doing okay. He was doing very well yesterday, became little more distended and plain film x-rays concerning for ileus type picture. An NG tube was placed large amount output. I was consulted for this. His temperature curve also is improving but he did have a temperature of 101 degrees last night but this has been improved overall since he has been here. PAST MEDICAL HISTORY: 1. Mental retardation. 2. Hypertension. 3. Seizure disorder. 4. Hypothyroidism. SURGICAL HISTORY: None. SOCIAL HISTORY: No tobacco, alcohol or drugs. Lives in a longterm. REVIEW OF SYSTEMS: Ten point negative than what is mentioned in HPI. FAMILY HISTORY: Unobtainable. PHYSICAL EXAMINATION: Vital Signs: Temperature is 99.9, pulse 86, blood pressure 134/78, O2 saturation 98% on 5 L nasal cannula. General: He is alert. He cries out and this is his baseline communication but seems in no acute distress, he has got NG tube in place with some scant bilious drainage. Cardiovascular: Normal rate, regular rhythm. Pulmonary: He is on supplemental nasal cannula 5 L. Abdomen: Soft, see no denise peritonitis and no obvious tenderness to palpation, is moderately distended. Integument: Warm, dry without jaundice. Extremities: There is no lower extremity edema and extremities otherwise seemed well perfused. Neurologically: Does seem to move all his extremities but he does not follow commands and is nonverbal. LABS: White count 4, this been stable 5 yesterday, hematocrit 34, platelets are 78,000. Sodium is 139, potassium 3.5, creatinine 0.4, glucose is 279, bilirubin is 0.6, AST, ALT 19, 25, albumin low at 2.4. Hemoccult was positive when he got here. C. difficile been negative and his blood cultures and stool cultures have been negative as well. ASSESSMENT AND PLAN: This 46-year-old white male who presented with sepsis likely multi etiology appears to have pneumonia, urinary tract infection, some colitis, is unclear if the colitis is the driving factor or the result of his hypotension, this is in a watershed distribution although does extend to the rectum, do not know endoscopic history but suspect he has not had a colonoscopy as he is only 46. Clinically I think he is slowly improving. He has got NG tube in for what appears to be an ileus. Will need to monitor this and ensure resolution, continues to have liquid stools per the nurse, C. difficile is negative, he is on adequate antibiotics of Levaquin, Flagyl and vancomycin would continue these. PLAN: Would continue IV antibiotics, bowel rest with NG tube decompression and strict NPO, he may need nutritional support via TPN if this is prolonged and he will need serial exams, I do not plan for surgical intervention at this point. At some point he will need a flexible sigmoidoscopy but this is not indicated currently with acute inflammatory state due to the high risk of perforation. Continue follow him along. I think plans transfer [place] and will see him when he gets there. cc: Amanda Armijo MD
[2017-01-07] MEDS: FLAGYL 500 MG/NS 500 MG/100 ML IVPB IV SCH ×4 (02:27→21:05)
[2017-01-07] MEDS: VANCOMYCIN 1,700 MG in NS 250 ML IV SCH ×3 (06:29→21:04)
[2017-01-07] MEDS: SODIUM CHLORIDE 0.9% INJ PRN (07:17)
[2017-01-07] MEDS: SYNTHROID IV SCH (07:17)
[2017-01-07] MEDS: D5W 1,000 ML IV SCH ×3 (07:21→21:04)
[2017-01-07 08:44] LABS: MANUAL DIFF NEEDED? NO
[2017-01-07 08:51] LABS: BASO% 0.5 % (0.0-0.8); EOS# 0.04 X1000 (0.0-0.7); EOS% 0.7 % (0.0-10.0); HEMATOCRIT 37.4 % (42.0-52.0); HEMOGLOBIN 12.7 g/dL (14.0-18.0); IMM GRAN# 0.06 X1000 (0.0-0.04); IMM GRAN% 1.1 % (0.0-0.5); LYMPH# 1.36 X1000 (1.2-3.4); LYMPH% 24.2 % (20.5-51.1); MCH 30.8 PG (27-31); MCV 90.6 FL (81-99); MONO# 0.87 X1000 (0.11-0.59); MONO% 15.5 % (1.7-9.3); MPV 10.3 FL (7.4-10.4); PLT 127 X1000 (130-400); RBC 4.13 XMIL (4.7-6.1)
[2017-01-07 09:16] LABS: AGAP 13; ALBUMIN 2.7 g/dL (3.5-5.0); ALKALINE PHOSPHATASE 65 U/L (32-122); BUN 15 mg/dL (8-22); CALCIUM 7.5 mg/dL (8.8-10.2); CHLORIDE 109 mmol/L (98-107); COSMO 284; GOT 20 U/L (10-34); GPT 23 U/L (10-44); POTASSIUM 3.5 mmol/L (3.5-5.1); SODIUM 142 mmol/L (136-145); TCO2 20 mmol/L (25-35); TOTAL BILIRUBIN 0.44 mg/dL (0.20-1.00); TOTAL PROTEIN 5.9 g/dL (6.3-8.3)
--- NOTE | 2017-01-07 10:00 | PROGRESS NOTE ---
DATE: 01/07/2017 The patient was admitted on 01/02/2017 with seizure, altered mental status, and diarrhea. A 46- year-old with a past medical history of mental retardation, seizure disorder, and hypertension. He was brought into the hospital with the chief complaint of diarrhea that started on 01/01/2017. This information was collected from custodial staff. Apparently, the patient has not eaten or drank anything since the day before admission for lunch. He also had a seizure. He had two other staff members holding him up. Ellen tovarlibby. Right before this happened, he started having tachypnea and mental status changes. In the emergency room, he was found to have positive urinalysis for infection, occult blood in the stool. PH was 7.12, bicarb was 9.3, lactate was 5.5. CT of the abdomen performed that showed nonspecific proctitis, sigmoid colitis, likely infectious or inflammatory. Also had left nephrolithiasis, left large nonobstructing staghorn calculus, left renal atrophy, nonspecific focal thickening in the fundus of the gallbladder. He was admitted to the hospital. He is awake. He is in 2 point restraints. He appears much calmer than reports. Dr. Armijo is following. Likely sepsis, multi etiology with pneumonia, urinary tract infection, some colitis. Unclear if the colitis is driving factor but is currently on antibiotics. Seems to be clinically improving. Suspect he has not had a colonoscopy. He is only 46. Suspect that may have to be done. He got an NG tube in for ileus. This is out at the present time. Continues to have liquid stools. C. difficile was negative. He is on Levaquin and Flagyl and vancomycin. Plan to continue these. May need nutritional support with TPN. Dr. Armijo is following along. Review of his orders note that he also has a history of hypothyroidism. Thyroid-stimulating hormone was slightly high which is consistent with inadequate supplementation. I think we ought to check a T4 and TSH together for a change in his Synthroid. Vitamin D deficiency. Level was 15.3. Folate deficiency, aware. PRESENT ORDERS: He already got some magnesium yesterday. He is on vancomycin, Flagyl, and Levaquin. His micro, no empiric antigens, cultures negative. I think we can stop the IV vancomycin. I will continue Levaquin and Flagyl. cc: Chapincito Avendano MD
[2017-01-07 14:05] LABS: INR 1.03; PROTIME 10.8 Seconds (9.2-11.7)
[2017-01-07] MEDS ORDERED: NS 250 ML ONE (14:09)
[2017-01-07] MEDS: LEVAQUIN 750 MG/D5W 750 MG/150 ML IVPB IV SCH (15:22)
--- NOTE | 2017-01-07 18:24 | PROGRESS NOTE ---
DATE: 01/07/2017 SUBJECTIVE: No events overnight. Hemodynamically stable. No more fevers. Seems more alert. Crying out which is his baseline. OBJECTIVE: Vital Signs: Temperature this morning was 99.3, pulse 91, blood pressure 115/72, oxygen saturation 98% on 5 L nasal cannula. General: He is arousable, cries out. He was given a bath. He seems agitated. Abdomen: Soft, nontender, nondistended. Integumentary: Warm, dry. LABS: White count is stable at 5, hematocrit 37, creatinine 1.03, creatinine 0.4. ASSESSMENT AND PLAN: This is a 46-year-old male admitted with mental retardation, nonverbal, with pneumonia and question of colitis. Clinically I think his examination is benign, his white count remains stable and his fever curve is improving. Continue broad-spectrum antibiotics port for this. I would recommend keeping him NPO and may need parenteral support through this. Giving bowel rest. In the future he will need a flexible sigmoidoscopy but I would not do this at this time given the acute inflammation. We will continue to follow along. He is on appropriate antibiotics both from colitis and pneumonia standpoint. cc: Amanda Armijo MD
[2017-01-08] MEDS: FLAGYL 500 MG/NS 500 MG/100 ML IVPB IV SCH ×4 (01:16→20:36)
[2017-01-08] MEDS: SYNTHROID IV SCH (07:53)
[2017-01-08] MEDS: VANCOMYCIN 1,700 MG in NS 250 ML IV SCH ×2 (09:46→22:07)
--- NOTE | 2017-01-08 11:11 | PROGRESS NOTE ---
DATE: 01/08/2017 SUBJECTIVE: He did not sleep much last night. Pretty restless. He is still in restraints but he did appear a little comfortable. His caregiver was at his bedside. He did smile for him. He is nonverbal. He looks comfortable, breathing comfortable. PHYSICAL EXAMINATION: Vital Signs: Temperature 98.1 degrees, pulse 78, respirations 21, blood pressure 118/81. HEENT: The pupils are equal. Lungs: Clear in all lung salgado. Cardiovascular Examination: Regular rhythm and rate without murmur or S3. Abdomen: Soft. Skin: Warm and dry. The NG tube is still in place. Is and Os: He had almost 5 L urine output. LAB: From yesterday reviewed. Hematocrit stable at 37, hemoglobin of 12, platelet count 127,000. Sodium 142, potassium 3.5, chloride 109, bicarb 20, BUN 15, creatinine 0.4. Chest x-ray, poor inspiration, left lung pretty hazy. Difficult to determine the lateral cardiac border. On the right, it is clear. This is a portable film. ASSESSMENT AND PLAN: 1. A 46-year-old admitted, mentally retarded, nonverbal with pneumonia, questionable colitis. Continue nasogastric tube. Surgery following. His white count remained stable and his fever has gone down. Continue broad-spectrum antibiotic. Continue to hold him nothing per oral. In the future, he will need a flexible sigmoidoscopy. At this time, just treat acute inflammation. Continue present antibiotics which are vancomycin, Flagyl, and Levaquin. 2. Metabolic acidosis when he came in. This has improved. We thought this was related to sepsis. He came in really in septic shock, probably from the colitis. 3. Hypernatremia, hyperkalemia, hyperchloremia. This has improved with fluids. 4. Thrombocytopenia, which is stable. 5. Dehydration. Gave him fluids. 6. History of hypothyroidism. 7. Note, the chest x-ray, it is difficult to see any aeration in the left lung but you can hear breath sounds over there. We will repeat a chest x-ray. I noticed that he had a CT of his chest, he had an x-ray on the . Opacification of the left lung base suggesting possible effusion, possible atelectasis and infiltrate. I am not sure there is any change. May get pulmonary involved. cc: Chapincito Avendano MD
--- NOTE | 2017-01-08 13:42 | PROGRESS NOTE ---
DATE: 01/08/2017 SUBJECTIVE: More comfortable. He is having bowel function. No nausea, vomiting, minimal NG tube output. OBJECTIVE: Temperature is 98.1 degrees, no temperature overnight. Pulse is 96. Blood pressure 123/71, O2 saturation 91% on 6 L nasal cannula.Abdomen: Soft, nontender, nondistended. He is more alert. In no acute distress. LABS: I have reviewed his labs. White count is stable at 5, hematocrit 37, creatinine 0.4. ASSESSMENT AND PLAN: This is a 46-year-old male, appears to have pneumonia and colitis of unclear etiology. From a gastrointestinal standpoint he has had return of bowel functions. Stool studies have been negative. Continue his antibiotics and will continue serial exams. I think we can discontinue his NG tube today. cc: Amanda Armijo MD
[2017-01-08] MEDS: LEVAQUIN 750 MG/D5W 750 MG/150 ML IVPB IV SCH (15:08)
[2017-01-08] MEDS: D5W 1,000 ML IV SCH ×2 (15:08→16:48)
[2017-01-09] MEDS: D5W 1,000 ML IV SCH ×3 (03:37→12:09)
[2017-01-09] MEDS: FLAGYL 500 MG/NS 500 MG/100 ML IVPB IV SCH ×4 (03:40→20:41)
[2017-01-09] MEDS: SYNTHROID IV SCH (06:45)
[2017-01-09] MEDS: SODIUM CHLORIDE 0.9% INJ PRN (06:45)
--- NOTE | 2017-01-09 10:00 | PROGRESS NOTE ---
DATE: 01/09/2017 SUBJECTIVE: He is much better. Caregiver, sitter states that he seems to be back to normal, smiling, comfortable. PHYSICAL EXAMINATION: Vital Signs: Temperature 97.2 degrees, pulse 80, respirations 25, blood pressure 87/49. HEENT: Pupils are equal and round. Lungs: Clear in all lung salgado. Cardiovascular Examination: Regular rhythm and rate without murmur or S3. Is and Os: Urine output was 5 L. LAB: Reviewed from yesterday, looked good. ASSESSMENT AND PLAN: 1. Appears to have pneumonia, colitis of unclear etiology. From gastrointestinal standpoint, he has had return of bowel function it looks like and clinically back to his baseline. The stools have been negative. The nasogastric tube is out. We will stop the Almazan catheter. We will see how he does with physical therapy and see about when we can get him back home, back to his home care. 2. Metabolic acidosis, resolved. 3. Hyponatremia, resolved. 4. Thrombocytopenia, which is resolved. cc: Chapincito Avendano MD
[2017-01-09] MEDS: VANCOMYCIN 1,700 MG in NS 250 ML IV SCH (10:33)
--- NOTE | 2017-01-09 11:01 | PROGRESS NOTE ---
DATE: 01/09/2017 SUBJECTIVE: Feels well. He is more alert. Mental status is back to his baseline. OBJECTIVE: Vital Signs: No fevers. No tachycardia. Pulse 81, blood pressure is 109/74, oxygen saturation 97% on 4 L. General: He is alert and responsive to voice. Abdomen: Soft, nontender, nondistended. Extremities: No lower extremity edema. Labs: White count is 5, hematocrit is 37. Creatinine 0.4. ASSESSMENT AND PLAN: This is a 46-year-old, white male with mental retardation who presents with pneumonia and apparent colitis. He seems to be improving from a colitis standpoint. Nasogastric tube is out. We can start giving him clear liquids and over the next 24 to 48 hours, advance the diet to soft. He does have a swallow evaluation ordered and I am not sure if he needs a modified diet or not but it would be fine for him to have clear liquid equivalent. cc: Amanda Armijo MD
--- NOTE | 2017-01-09 12:39 | Diag Imaging Result Doc PS360 ---
EXAM: KUB ABDOMEN HISTORY: distended abdomen. COMMENT: The entire abdomen is not included on the images. There is gas in the distal colon. Possibility of ileus cannot be excluded. There is apparent staghorn calculus in the left kidney. Findings on the previous CT of 01/02/2017 were consistent with colitis. IMPRESSION: Ileus. Electronically signed by Vincent Gonzalez 01/09/2017 12:37 PM
--- NOTE | 2017-01-09 12:40 | Diag Imaging Result Doc PS360 ---
EXAM: CHEST-PORTABLE HISTORY: NG tube placement COMMENT: There is an NG tube with its tip in the stomach. There is opacity throughout much of the left lung with volume loss and shift of the mediastinum to the left. This is worse than on 01/05/2017. IMPRESSION: Worsened atelectasis in the left lung. NG tube in the stomach. Electronically signed by Vincent Gonzalez 01/09/2017 12:38 PM
[2017-01-09] MEDS: SEROQUEL PO SCH ×2 (13:20→17:16)
[2017-01-09] MEDS: DEPAKOTE PO SCH (20:40)
[2017-01-09] MEDS: ICOSAPENT ETHYL 1000 MG PO SCH (20:40)
[2017-01-09] MEDS: TOPAMAX PO SCH (20:40)
[2017-01-09] MEDS: KEPPRA PO SCH (20:40)
[2017-01-10] MEDS: D5W 1,000 ML IV SCH ×2 (02:02→14:51)
[2017-01-10] MEDS: FLAGYL 500 MG/NS 500 MG/100 ML IVPB IV SCH ×4 (04:02→21:42)
[2017-01-10] MEDS: SYNTHROID IV SCH (06:10)
[2017-01-10] MEDS: SODIUM CHLORIDE 0.9% INJ PRN (06:10)
[2017-01-10 09:12] LABS: MANUAL DIFF NEEDED? NO
[2017-01-10] MEDS: ICOSAPENT ETHYL 1000 MG PO SCH ×2 (09:17→21:43)
[2017-01-10] MEDS: SEROQUEL PO SCH ×3 (09:17→19:32)
[2017-01-10] MEDS: TOPAMAX PO SCH ×2 (09:18→21:44)
[2017-01-10] MEDS: VITAMIN C PO SCH (09:18)
[2017-01-10] MEDS: KEPPRA PO SCH ×2 (09:18→21:44)
[2017-01-10] MEDS: DEPAKOTE PO SCH ×2 (09:18→21:44)
[2017-01-10] MEDS: PRILOSEC PO SCH (09:18)
[2017-01-10] MEDS: PRAVACHOL PO SCH (09:18)
[2017-01-10 09:19] LABS: BASO% 0.2 % (0.0-0.8); EOS# 0.06 X1000 (0.0-0.7); EOS% 0.7 % (0.0-10.0); HEMATOCRIT 36.8 % (42.0-52.0); HEMOGLOBIN 12.5 g/dL (14.0-18.0); IMM GRAN# 0.02 X1000 (0.0-0.04); IMM GRAN% 0.2 % (0.0-0.5); LYMPH# 1.34 X1000 (1.2-3.4); LYMPH% 14.5 % (20.5-51.1); MCH 30.9 PG (27-31); MCV 90.9 FL (81-99); MONO# 0.52 X1000 (0.11-0.59); MONO% 5.6 % (1.7-9.3); MPV 10.1 FL (7.4-10.4); NEUT% 78.8 % (42.2-75.2); PLT 264 X1000 (130-400); RBC 4.05 XMIL (4.7-6.1)
[2017-01-10 09:52] LABS: AGAP 11; ALBUMIN 2.7 g/dL (3.5-5.0); ALKALINE PHOSPHATASE 77 U/L (32-122); BUN 6 mg/dL (8-22); CHLORIDE 110 mmol/L (98-107); COSMO 281; GOT 18 U/L (10-34); GPT 19 U/L (10-44); POTASSIUM 3.5 mmol/L (3.5-5.1); SODIUM 142 mmol/L (136-145); TCO2 21 mmol/L (25-35); TOTAL BILIRUBIN 0.28 mg/dL (0.20-1.00); TOTAL PROTEIN 6.4 g/dL (6.3-8.3)
[2017-01-10] MEDS: PROZAC PO SCH (09:58)
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
[2017-01-10] MEDS: CLARITIN PO SCH (13:12)
[2017-01-10] MEDS: SYNTHROID PO SCH (13:12)
--- NOTE | 2017-01-10 13:32 | PROGRESS NOTE ---
DATE: 01/10/2017 SUBJECTIVE: Much more alert, feels well, seems in good spirits. Having bowel function. No vomiting. Tolerating some clears. OBJECTIVE: No fevers. Heart rate has been in the 90s to low 100s. Blood pressure 126/55, oxygen saturation 93% on 2 L.General: He is alert, seems responsive. Abdomen: Soft, nontender, nondistended. Integument: Otherwise warm and dry. White count is 9, hematocrit 36, creatinine 0.4. ASSESSMENT AND PLAN: This is a 46-year-old male with pneumonia and colitis seems to be doing well from both of these. Continues with a productive cough and oxygen requirement but his abdomen is very benign. It is okay to advance his diet as he tolerates. Please call with any questions or concerns. cc: Amanda Armijo MD
[2017-01-10] MEDS: VANCOMYCIN 1,700 MG in NS 250 ML IV SCH ×2 (14:51→17:13)
[2017-01-11] MEDS ORDERED: NS 250 ML IV ONE (02:36)
--- NOTE | 2017-01-11 05:15 | EKG Report ---
Test Performed on : 01/11/2017 01:54:25 AM Test Reason : Tachycardia Blood Pressure : / mmHG Vent. Rate : 125 BPM Atrial Rate : 125 BPM P-R Int : 128 ms QRS Dur : 084 ms QT Int : 354 ms P-R-T Axes : 041 -37 086 degrees QTc Int : 510 ms Sinus tachycardia. Left axis deviation ST \T\ T wave abnormality, consider anterior ischemia Abnormal ECG When compared with ECG of 02-JAN-2017 15:04, (Unconfirmed) premature ventricular complexes. are no longer present Nonspecific T wave abnormality, worse in Inferior leads T wave inversion now evident in Anterior leads Confirmed by Fauzia HINSON, Patrick Ewing ([id number]) on 01/11/2017 3:30:07 PM
[2017-01-11] MEDS: D5W 1,000 ML IV SCH (05:58)
[2017-01-11] MEDS: FLAGYL 500 MG/NS 500 MG/100 ML IVPB IV SCH ×3 (06:43→18:22)
[2017-01-11] MEDS: SYNTHROID IV SCH (07:48)
[2017-01-11] MEDS: VANCOMYCIN 1,700 MG in NS 250 ML IV SCH (07:51)
[2017-01-11] MEDS: PRILOSEC PO SCH (10:02)
[2017-01-11] MEDS: KEPPRA PO SCH ×2 (10:02→22:22)
[2017-01-11] MEDS: PROZAC PO SCH (10:02)
[2017-01-11] MEDS: DEPAKOTE PO SCH ×2 (10:03→22:20)
[2017-01-11] MEDS: TOPAMAX PO SCH ×2 (10:03→22:21)
[2017-01-11] MEDS: SEROQUEL PO SCH ×3 (10:03→18:22)
[2017-01-11] MEDS: ICOSAPENT ETHYL 1000 MG PO SCH ×2 (10:03→22:22)
[2017-01-11] MEDS: PRAVACHOL PO SCH (10:03)
[2017-01-11] MEDS: SYNTHROID PO SCH (10:04)
[2017-01-11] MEDS: VITAMIN C PO SCH (10:08)
[2017-01-11] MEDS: CLARITIN PO SCH (10:09)
--- NOTE | 2017-01-11 11:10 | Diag Imaging Result Doc PS360 ---
EXAM: CHEST-PORTABLE HISTORY: SOB TECHNIQUE: Portable one view COMMENT: There continues to be extensive atelectasis in the left lung which shifts the mediastinum to the left. The PICC line on the right is again noted with its tip in the superior vena cava just above the right atrium. The right lung is essentially clear and stable since the previous study of 01/07/2017. There may be greater opacification of the left costophrenic angle. The NG tube has been removed. IMPRESSION: Worsened atelectasis versus pneumonia left lower lobe. Electronically signed by Vincent Gonzalez 01/11/2017 11:08 AM
[2017-01-11] MEDS: DUONEB (A & A) INH SCH ×4 (11:37→22:53)
--- NOTE | 2017-01-11 11:51 | PROGRESS NOTE ---
DATE: 01/11/2017 SUBJECTIVE: This patient is tachycardic today and he is more somnolent. I ordered an x-ray that showed worsening atelectasis, pneumonia at the level of the left lower lung. I restarted this patient on breathing treatment and I added ceftriaxone to his medications, also additionally, I have consulted Pulmonary Department. OBJECTIVE: Vital Signs: Temperature 97.8 degrees, pulse 125, respiratory rate 16, blood pressure 106/67, O2 saturation 90% on 3 L of nasal cannula. HEENT: Head normocephalic. No trauma. PERRLA. Neck: Supple. No JVD. No masses. Central trachea. Cardiovascular: RRR. No murmurs. Tachycardic. Lungs: Bilateral crackles with rhonchi at the level of the left lower lung. Abdomen: Soft, nontender, nondistended. Positive bowel sounds. Neurological: This patient is somnolent. He has mental retardation. LABORATORY: WBC 9.2, hemoglobin 12.5, hematocrit 36.8, platelets 264,000. Sodium 142, potassium 3.5, chloride 110, bicarbonate 21, BUN 6, creatinine 0.4, glucose 102, calcium 8 , albumin 2.7. ASSESSMENT AND PLAN: 1. Patient was admitted secondary to septic shock and this was secondary to left lower lobe pneumonia, urinary tract infection and colitis of unclear etiology. It looks like from the gastrointestinal standpoint, he has had return of bowel function and probably this is his baseline. The problem is that he is still coughing and I ordered an x-ray that showed worsening of left lower lobe pneumonia, I have consulted Pulmonary Department and I put this patient on respiratory treatment, and ceftriaxone again. 2. Metabolic acidosis, resolved. 3. Hyponatremia, resolved. 4. Thrombocytopenia, resolved. 5. Physical deconditioning. Continue physical therapy. 6. Mental retardation. Aware. 7. Hypoxemia. Continue with oxygen. cc: Emory Garza MD [facility]
--- NOTE | 2017-01-11 12:29 | CONSULTATION ---
DATE OF CONSULTATION: 01/11/2017 REFERRING PHYSICIAN: Dr. Emory Garza. CHIEF COMPLAINT: Evaluation for pneumonia. HISTORY OF PRESENTING ILLNESS: This 46-year-old man with a past history of seizures, learning disability, autism, and hypertension, a assisted resident, presented to the hospital after transfer from [place] for severe sepsis and shock, improved, and now has pneumonia. Aspiration is possible. PAST MEDICAL HISTORY: Seizure disorder, severe autism, assisted resident, learning disability, hypertension, hypothyroidism. PAST SURGICAL HISTORY: Unknown. SOCIAL HISTORY: [facility] resident. The guardian was at the bedside at the time of evaluation. FAMILY HISTORY: Noncontributory. REVIEW OF SYSTEMS: As detailed in history of presenting illness, otherwise noncontributory. ALLERGIES: Reviewed from electronic records and he has possible allergy to methylphenidate. MEDICATIONS IN THE HOSPITAL: Flagyl, morphine, vancomycin, ceftriaxone, nebulized treatments, Synthroid. PHYSICAL EXAMINATION: General: He is awake, smiling occasionally. The guardian is at the bedside from the assisted. Vital Signs: Noted. Head and Neck: Examined. Trachea midline. Chest: Reduced air entry bilaterally, more in the right lower to my ears. Cardiac: S1 and S2. Abdomen: Nontender. Extremity Examination: +1 pedal edema. Neurologic: Awake. LABORATORY AND INVESTIGATIONS: Chest x-ray from 01/11/2017 showed worsened atelectasis and pneumonia in left lower lobe. CBC and CMP noted. CODE STATUS: The patient is DNR 2. ASSESSMENT AND PLAN: A 46-year-old man with severe autism, seizure disorder, learning disability, a assisted resident, who was in [facility] with severe sepsis and shock, improved, and now has left lower lobe pneumonia. Aspiration is possible. I agree with the current antibiotic therapy. For difficulty with expectoration, we will proceed with chest physical therapy. Thank you for the courtesy of this consult. Discussed with Dr. Ospina. cc: Melvin Castro MD
[2017-01-11] MEDS: ROCEPHIN 1 GM/NS 1 GM/50 ML IVPB IV SCH (15:31)
[2017-01-12] MEDS: FLAGYL 500 MG/NS 500 MG/100 ML IVPB IV SCH ×3 (02:55→14:13)
[2017-01-12] MEDS: DUONEB (A & A) INH SCH ×6 (03:15→23:03)
[2017-01-12] MEDS: VANCOMYCIN 1,700 MG in NS 250 ML IV SCH ×2 (04:03→22:45)
[2017-01-12 06:53] LABS: MANUAL DIFF NEEDED? NO
[2017-01-12 06:59] LABS: BASO% 0.2 % (0.0-0.8); EOS# 0.01 X1000 (0.0-0.7); EOS% 0.1 % (0.0-10.0); HEMATOCRIT 34.4 % (42.0-52.0); HEMOGLOBIN 11.4 g/dL (14.0-18.0); IMM GRAN# 0.02 X1000 (0.0-0.04); IMM GRAN% 0.2 % (0.0-0.5); LYMPH# 1.31 X1000 (1.2-3.4); LYMPH% 14.6 % (20.5-51.1); MCH 30.7 PG (27-31); MCHC 33.1 g/dL (33-37); MCV 92.7 FL (81-99); MONO% 5.6 % (1.7-9.3); MPV 10.4 FL (7.4-10.4); NEUT% 79.3 % (42.2-75.2); PLT 276 X1000 (130-400); RBC 3.71 XMIL (4.7-6.1)
--- NOTE | 2017-01-12 07:07 | Diag Imaging Result Doc PS360 ---
EXAM: CHEST-PORTABLE HISTORY: dyspnea TECHNIQUE: AP portable at 0500 COMMENT: The left hemithorax continues to be nearly completely opacified with volume loss and shift of the mediastinum to the left. The right lung demonstrates some questionable atelectasis at the base but otherwise has not changed significantly since the previous study. The PICC line remains in place. IMPRESSION: Stable since 01/11/2017. Electronically signed by Vincent Gonzalez 01/12/2017 7:04 AM
[2017-01-12 07:25] LABS: AGAP 13; BUN 9 mg/dL (8-22); CALCIUM 8.1 mg/dL (8.8-10.2); CHLORIDE 112 mmol/L (98-107); COSMO 281; POTASSIUM 3.3 mmol/L (3.5-5.1); SODIUM 141 mmol/L (136-145); TCO2 16 mmol/L (25-35)
[2017-01-12] MEDS ORDERED: POTASSIUM CHLORIDE 40 MEQ/SWI 40 MEQ/100 ML IVPB IV ONE (08:10)
[2017-01-12] MEDS: PROZAC PO SCH (08:57)
[2017-01-12] MEDS: TOPAMAX PO SCH ×2 (08:57→23:13)
[2017-01-12] MEDS: PRILOSEC PO SCH (08:58)
[2017-01-12] MEDS: VITAMIN C PO SCH (08:58)
[2017-01-12] MEDS: KEPPRA PO SCH ×2 (08:58→22:56)
[2017-01-12] MEDS: PRAVACHOL PO SCH (08:58)
[2017-01-12] MEDS: CLARITIN PO SCH (08:59)
[2017-01-12] MEDS: DEPAKOTE PO SCH ×2 (08:59→23:03)
[2017-01-12] MEDS: SYNTHROID PO SCH (08:59)
[2017-01-12] MEDS: ICOSAPENT ETHYL 1000 MG PO SCH ×2 (08:59→22:56)
[2017-01-12] MEDS: SEROQUEL PO SCH ×3 (08:59→17:03)
[2017-01-12 09:55] LABS: ALLEN TEST YES; BE -7.8 mmoll (-3.0-3.0); BLOOD TYPE ARTERIAL; DRAW SITE R RADIAL; METHB 0.9 % (0.0-1.5); O2(CT) 15.5 mL/dL (15.0-23.0); PCO2(98.6) 28 mmHg (35-45); PO2(98.6) 75 mmHg (60-100); SAMPLE BLOOD; SAO2 95.7 % (95.0-100.0); THB 11.7 g/dL (11.5-17.4); pH(98.6) 7.37 (7.35-7.45)
[2017-01-12 09:56] LABS: MODALITY CANNULA
[2017-01-12] MEDS: ROCEPHIN 1 GM/NS 1 GM/50 ML IVPB IV SCH (12:37)
[2017-01-12] MEDS: NS 1,000 ML IV SCH (14:13)
--- NOTE | 2017-01-12 16:23 | PROGRESS NOTE ---
DATE: 01/12/2017 SUBJECTIVE: This patient looks a little bit better today, yesterday this patient was evaluated by Pulmonary Department, he has been placed on CPT and antibiotics. OBJECTIVE: Vital Signs: Temperature 98.3 degrees, pulse 122, respiratory rate 20, blood pressure 109/65, O2 saturation 94% on 2 L of nasal cannula. HEENT: Head normocephalic. No trauma. PERRLA. Neck: Supple. No JVD. No masses. Central trachea. Cardiovascular: RRR. No murmurs. Tachycardic. Lungs: Bilateral crackles with rhonchi at the level of the left lower lung. Abdomen: Soft, nontender, nondistended. Positive bowel sounds. Neurological: The patient is alert but mildly somnolent. He has mental retardation. He is not following commands. LABORATORY: WBC 8.9, hemoglobin 11.4, hematocrit 34.4, platelets 276,000. Sodium 141, potassium 3.3, chloride 112, bicarbonate 16, BUN 9, creatinine 0.6, glucose 123, calcium 8.1. ASSESSMENT AND PLAN: 1. Septic shock, resolved. We will continue to monitor. 2. Left lower lobe pneumonia. Pulmonary Department is following this patient. I placed this patient on antibiotics yesterday, ceftriaxone, and also this patient is going to start getting chest physical therapy. 3. Hyponatremia, resolved. 4. Hypokalemia. I will provide potassium today. 5. Thrombocytopenia, resolved. 6. Physical deconditioning. Continue with physical therapy. 7. Mental retardation. Aware. 8. Hypoxemia. Continue with oxygen. cc: Emory Garza MD
[2017-01-13] MEDS: FLAGYL 500 MG/NS 500 MG/100 ML IVPB IV SCH ×5 (01:18→21:58)
[2017-01-13] MEDS: NS 1,000 ML IV SCH ×3 (01:24→15:55)
[2017-01-13] MEDS: DUONEB (A & A) INH SCH ×6 (03:40→22:32)
[2017-01-13 04:01] LABS: ALLEN TEST YES; BE -6.4 mmoll (-3.0-3.0); BLOOD TYPE ARTERIAL; DRAW SITE R RADIAL; METHB 1.4 % (0.0-1.5); O2(CT) 14.1 mL/dL (15.0-23.0); PCO2(98.6) 25 mmHg (35-45); PO2(98.6) 66 mmHg (60-100); SAMPLE BLOOD; SAO2 94.5 % (95.0-100.0); THB 10.8 g/dL (11.5-17.4); pH(98.6) 7.43 (7.35-7.45)
[2017-01-13 04:03] LABS: MODALITY CANNULA
[2017-01-13] MEDS: PROZAC PO SCH (08:02)
[2017-01-13] MEDS: PRILOSEC PO SCH (08:02)
[2017-01-13] MEDS: KEPPRA PO SCH ×2 (08:02→21:59)
[2017-01-13] MEDS: MIRALAX PO SCH (08:02)
[2017-01-13] MEDS: DEPAKOTE PO SCH ×2 (08:02→21:59)
[2017-01-13] MEDS: PRAVACHOL PO SCH (08:02)
[2017-01-13] MEDS: ICOSAPENT ETHYL 1000 MG PO SCH ×2 (08:02→22:00)
[2017-01-13] MEDS: VITAMIN C PO SCH (08:02)
[2017-01-13] MEDS: SEROQUEL PO SCH ×3 (08:02→17:27)
[2017-01-13] MEDS: SYNTHROID PO SCH (08:02)
[2017-01-13] MEDS: TOPAMAX PO SCH ×2 (08:03→21:58)
[2017-01-13] MEDS: CLARITIN PO SCH (08:03)
[2017-01-13 08:56] LABS: MANUAL DIFF NEEDED? NO
[2017-01-13 09:00] LABS: BASO% 0.3 % (0.0-0.8); EOS# 0.03 X1000 (0.0-0.7); EOS% 0.4 % (0.0-10.0); HEMATOCRIT 32.7 % (42.0-52.0); HEMOGLOBIN 10.6 g/dL (14.0-18.0); IMM GRAN# 0.02 X1000 (0.0-0.04); IMM GRAN% 0.3 % (0.0-0.5); LYMPH# 0.88 X1000 (1.2-3.4); LYMPH% 11.5 % (20.5-51.1); MCH 30.4 PG (27-31); MCHC 32.4 g/dL (33-37); MCV 93.7 FL (81-99); MONO# 0.37 X1000 (0.11-0.59); MONO% 4.8 % (1.7-9.3); MPV 10.1 FL (7.4-10.4); NEUT% 82.7 % (42.2-75.2); PLT 264 X1000 (130-400); RBC 3.49 XMIL (4.7-6.1)
[2017-01-13 09:15] LABS: AGAP 13; BUN 10 mg/dL (8-22); CALCIUM 7.9 mg/dL (8.8-10.2); CHLORIDE 115 mmol/L (98-107); COSMO 288; POTASSIUM 3.4 mmol/L (3.5-5.1); SODIUM 145 mmol/L (136-145); TCO2 17 mmol/L (25-35)
--- NOTE | 2017-01-13 10:09 | Diag Imaging Result Doc PS360 ---
EXAM: ANGIOGRAM/PULMONARY ARTERIES HISTORY: Rule out PE TECHNIQUE: CT of the chest with contrast and reduced dose at 2 mm thin slices COMMENT: The study is slightly suboptimal due to patient motion and beam hardening artifact. There is a pleural effusion on the left. There is consolidation of most of the left lung. There is a somewhat irregular bleb present in the right upper lobe posteriorly there is atelectasis and/or fibrosis in the right lower lobe particularly in the posterior costophrenic sulcus. There is a groundglass opacity present on image 55 in the inferior right upper lobe. No filling defects are demonstrated in the pulmonary arteries to suggest pulmonary emboli. There is no evidence of aortic dissection or aneurysm. The included portion of the abdomen demonstrates fluid throughout much of the demonstrated colon. There is a subcutaneous cyst posteriorly over the left shoulder. No definite acute bony abnormalities are present. There is a large amount of secretions present in the upper thoracic trachea. IMPRESSION: No evidence of pulmonary emboli. Left upper and lower lobe pneumonia with pleural effusion. Atelectasis and questionable patchy pneumonia on the right as described. Electronically signed by Vincent Gonzalez 01/13/2017 10:07 AM
[2017-01-13] MEDS ORDERED: POTASSIUM CHLORIDE 40 MEQ/SWI 40 MEQ/100 ML IVPB IV ONE (10:12)
--- NOTE | 2017-01-13 11:29 | PROGRESS NOTE ---
DATE: 01/13/2017 SUBJECTIVE: This patient looks better today. He is more alert and he is more at his baseline. He is smiling and he is not complaining of pain or having any kind of respiratory distress. Pulmonary department is following this patient. They asked for a CT angiogram of the chest to rule out pulmonary embolism, pending results. OBJECTIVE: Vital Signs: Temperature 98.5 degrees, pulse 108, respiratory rate 22, blood pressure 108/58, oxygen saturation 93 on 3 L of nasal cannula. HEENT: Head normocephalic. No trauma. PERRLA. Neck: Supple. No JVD. No masses. Central trachea. Cardiovascular: RRR. No murmurs. Tachycardic. Lungs: Bilateral crackles with rhonchi, mostly at the level of the mid and lower left lung. Abdomen: Soft, nontender, mildly distended. Positive bowel sounds. Neurological Examination: The patient is alert. It looks like this is his baseline. He has mental retardation. He is not following commands. Laboratory Data: WBC 7.6, hemoglobin 10.6, hematocrit 32.7, platelets 264,000. Sodium 145, potassium 3.4, chloride 105, bicarbonate 17, creatinine 0.4, BUN 10, glucose 108, calcium 7.9. ASSESSMENT AND PLAN: 1. Septic shock, resolved. 2. Left lower lobe pneumonia. Continue with antibiotics and CPT. Pulmonary department is following this patient. 3. Respiratory distress. He looks a little bit better today. CT angiogram of the chest has been requested, pending results. 4. Hyponatremia, resolved. 5. Hypokalemia. I will provide potassium today. 6. Thrombocytopenia, resolved. 7. Mental retardation, aware. 8. Hypoxemia. Continue with oxygen. 9. Physical deconditioning. Continue with physical therapy. cc: Emory Garza MD
[2017-01-13] MEDS: ROCEPHIN 1 GM/NS 1 GM/50 ML IVPB IV SCH (11:53)
[2017-01-13] MEDS: VANCOMYCIN 1,700 MG in NS 250 ML IV SCH (13:57)
[2017-01-14] MEDS: DUONEB (A & A) INH SCH ×6 (03:19→23:30)
[2017-01-14] MEDS: FLAGYL 500 MG/NS 500 MG/100 ML IVPB IV SCH ×4 (04:49→21:28)
[2017-01-14] MEDS: NS 1,000 ML IV SCH (04:49)
[2017-01-14 06:38] LABS: AGAP 10; BUN 6 mg/dL (8-22); CALCIUM 7.8 mg/dL (8.8-10.2); CHLORIDE 117 mmol/L (98-107); COSMO 284; POTASSIUM 3.4 mmol/L (3.5-5.1); SODIUM 144 mmol/L (136-145); TCO2 17 mmol/L (25-35)
[2017-01-14] MEDS: VANCOMYCIN 1,700 MG in NS 250 ML IV SCH (08:14)
[2017-01-14] MEDS: MIRALAX PO SCH (09:31)
[2017-01-14] MEDS: VITAMIN C PO SCH (09:32)
[2017-01-14] MEDS: PRAVACHOL PO SCH (09:32)
[2017-01-14] MEDS: SEROQUEL PO SCH ×3 (09:32→21:27)
[2017-01-14] MEDS: SYNTHROID PO SCH (09:32)
[2017-01-14] MEDS: PROZAC PO SCH (09:33)
[2017-01-14] MEDS: DEPAKOTE PO SCH ×2 (09:33→21:27)
[2017-01-14] MEDS: PRILOSEC PO SCH (09:33)
[2017-01-14] MEDS: TOPAMAX PO SCH ×2 (09:33→21:27)
[2017-01-14] MEDS: CLARITIN PO SCH (09:33)
[2017-01-14] MEDS: ICOSAPENT ETHYL 1000 MG PO SCH ×2 (09:33→21:27)
[2017-01-14] MEDS: KEPPRA PO SCH ×2 (09:37→21:27)
--- NOTE | 2017-01-14 11:25 | PROGRESS NOTE ---
DATE: 01/14/2017 SUBJECTIVE: This patient looks better today. He is more alert. He is tolerating p.o. He is not complaining of any pain. He is not having any respiratory distress. Pulmonary department is following this patient. They asked for a CT angiogram of the chest yesterday. That did not show any evidence of pulmonary emboli. It showed a left upper and lower lobe pneumonia with pleural effusion, atelectasis, and questionable patchy pneumonia on the right. This patient is on antibiotics and he is getting much better. I do believe that in 1 or 2 days he is going to be able to be discharged to his [place] [facility] with probable physical therapy. I do not think he needs oxygen. His oxygen saturation has been fine even without oxygen. OBJECTIVE: Vital Signs: Temperature 98.7 degrees, pulse 108, respiratory rate 15, blood pressure 109/58, oxygen saturation 96 on room air. HEENT: Head normocephalic. No trauma. PERRLA. Neck: Supple. No JVD. No masses. Central trachea. Cardiovascular: RRR. No murmurs. Tachycardic. Lungs: Bilateral crackles with rhonchi mostly at the level of the mid and lower left lung. Abdomen: Soft, nontender. Mildly distended. Positive bowel sounds. Neurological: The patient is alert. Probably this is his baseline. He has mental retardation. He is not following commands. LABORATORY: Sodium 144, potassium 3.4, chloride 117, bicarbonate 17, BUN 6, creatinine 0.4, glucose 88, calcium 7.8. ASSESSMENT AND PLAN: 1. Septic shock, resolved. 2. Left lower lobe pneumonia. Continue with antibiotics and CPT. Pulmonary department is following this patient. 3. Respiratory distress. He looks a little bit better today. CT angiogram of the chest did not show any pulmonary embolism. 4. Hyponatremia, resolved. 5. Hypokalemia. I will replace the potassium today. 6. Thrombocytopenia, resolved. 7. Mental retardation. Aware. 8. Hypoxemia. This patient is not hypoxemic at this moment. We measured the oxygen saturation without oxygen and it was okay. 9. Physical deconditioning. Continue with physical therapy. cc: Emory Garza MD
[2017-01-14] MEDS: ROCEPHIN 1 GM/NS 1 GM/50 ML IVPB IV SCH (12:31)
[2017-01-14] MEDS: POTASSIUM CHLORIDE 20 MEQ/SWI 20 MEQ/100 ML IVPB IV SCH ×2 (13:37→15:33)
[2017-01-15] MEDS: VANCOMYCIN 1,700 MG in NS 250 ML IV SCH ×2 (02:56→22:53)
[2017-01-15] MEDS: DUONEB (A & A) INH SCH ×6 (03:45→22:58)
[2017-01-15] MEDS: NS 1,000 ML IV SCH ×2 (04:14→13:23)
[2017-01-15] MEDS: FLAGYL 500 MG/NS 500 MG/100 ML IVPB IV SCH ×4 (04:15→22:52)
[2017-01-15 06:45] LABS: MANUAL DIFF NEEDED? NO
[2017-01-15 06:56] LABS: BASO% 0.5 % (0.0-0.8); EOS# 0.06 X1000 (0.0-0.7); EOS% 1.5 % (0.0-10.0); HEMATOCRIT 29.7 % (42.0-52.0); HEMOGLOBIN 9.4 g/dL (14.0-18.0); LYMPH# 0.96 X1000 (1.2-3.4); LYMPH% 23.6 % (20.5-51.1); MCH 29.9 PG (27-31); MCHC 31.6 g/dL (33-37); MCV 94.6 FL (81-99); MONO# 0.24 X1000 (0.11-0.59); MONO% 5.9 % (1.7-9.3); MPV 10.5 FL (7.4-10.4); NEUT% 68.5 % (42.2-75.2); PLT 256 X1000 (130-400); RBC 3.14 XMIL (4.7-6.1)
[2017-01-15 07:10] LABS: AGAP 12; BUN 3 mg/dL (8-22); CALCIUM 7.5 mg/dL (8.8-10.2); CHLORIDE 115 mmol/L (98-107); COSMO 283; POTASSIUM 3.6 mmol/L (3.5-5.1); SODIUM 144 mmol/L (136-145); TCO2 17 mmol/L (25-35)
[2017-01-15] MEDS: SYNTHROID PO SCH (09:14)
[2017-01-15] MEDS: VITAMIN C PO SCH (09:14)
[2017-01-15] MEDS: SEROQUEL PO SCH ×3 (09:15→17:48)
[2017-01-15] MEDS: PROZAC PO SCH (09:15)
[2017-01-15] MEDS: PRILOSEC PO SCH (09:15)
[2017-01-15] MEDS: PRAVACHOL PO SCH (09:15)
[2017-01-15] MEDS: TOPAMAX PO SCH ×2 (09:15→23:29)
[2017-01-15] MEDS: KEPPRA PO SCH ×2 (09:15→23:29)
[2017-01-15] MEDS: DEPAKOTE PO SCH ×2 (09:15→23:28)
[2017-01-15] MEDS: MIRALAX PO SCH (09:15)
[2017-01-15] MEDS: CLARITIN PO SCH (09:15)
[2017-01-15] MEDS: ICOSAPENT ETHYL 1000 MG PO SCH ×2 (09:24→23:27)
[2017-01-15] MEDS: ROCEPHIN 1 GM/NS 1 GM/50 ML IVPB IV SCH (11:45)
[2017-01-15] MEDS ORDERED: FLAGYL PO ONE ×2 (16:53→23:00)
[2017-01-15 17:58] LABS: INR 1.05; PROTIME 11.1 Seconds (9.2-11.7)
[2017-01-16] MEDS: DUONEB (A & A) INH SCH ×6 (03:52→23:03)
[2017-01-16] MEDS ORDERED: FLAGYL PO ONE (05:00)
[2017-01-16] MEDS: FLAGYL 500 MG/NS 500 MG/100 ML IVPB IV SCH ×4 (05:14→21:06)
[2017-01-16] MEDS: NS 1,000 ML IV SCH ×2 (05:14→21:12)
[2017-01-16] MEDS ORDERED: NS 250 ML ONE (07:49)
[2017-01-16] MEDS: DEPAKOTE PO SCH ×2 (09:37→21:07)
[2017-01-16] MEDS: SYNTHROID PO SCH (09:37)
[2017-01-16] MEDS: PRILOSEC PO SCH (09:37)
[2017-01-16] MEDS: PRAVACHOL PO SCH (09:37)
[2017-01-16] MEDS: CLARITIN PO SCH (09:37)
[2017-01-16] MEDS: TOPAMAX PO SCH ×2 (09:38→21:07)
[2017-01-16] MEDS: KEPPRA PO SCH ×2 (09:38→21:08)
[2017-01-16] MEDS: SEROQUEL PO SCH ×3 (09:38→21:07)
[2017-01-16] MEDS: VITAMIN C PO SCH (09:38)
[2017-01-16] MEDS: PROZAC PO SCH (09:39)
[2017-01-16] MEDS: MIRALAX PO SCH (09:44)
[2017-01-16] MEDS: ICOSAPENT ETHYL 1000 MG PO SCH ×2 (10:08→21:07)
[2017-01-16 10:15] LABS: AGAP 13; BUN 3 mg/dL (8-22); CALCIUM 8.1 mg/dL (8.8-10.2); CHLORIDE 111 mmol/L (98-107); COSMO 279; POTASSIUM 3.4 mmol/L (3.5-5.1); SODIUM 142 mmol/L (136-145); TCO2 18 mmol/L (25-35)
[2017-01-16] MEDS ORDERED: XYLOCAINE-MPF 1% INJ ONE (12:00)
--- NOTE | 2017-01-16 12:23 | PROGRESS NOTE ---
DATE: 01/16/2017 SUBJECTIVE: The patient is not verbal. He is more sleepy today in comparing with yesterday. OBJECTIVE: Vital Signs: Temperature 97.8 degrees, heart rate 102, respiratory rate 18, blood pressure 102/51, and O2 saturation 96% on room air. General: This is a 46-year-old male with signs of mental retardation, lying in bed, in no acute distress. Very sleepy today. HEENT: Head is normocephalic, atraumatic. Anicteric sclerae and pale conjunctivae. Mucous membranes moist. Neck: Supple no JVD. No carotid bruits. No lymphadenopathy. No thyromegaly. Cardiovascular: S1 and S2 heard. No murmurs, gallops, or rubs. Regular rate and rhythm. Respiratory: Some crackles in both bases and rhonchi as well. The patient is not using any accessory muscles or having work of breathing. Abdomen: Soft, nontender to palpation. Bowel sounds present. No organomegaly. Extremities: No clubbing, cyanosis, or edema. Peripheral pulses present in both legs. Neurological: The patient is lethargic and does not follow commands. LABORATORY DATA: Reviewed. ASSESSMENT AND PLAN: 1. Left lower lobe pneumonia. The patient is on antibiotics, currently on vancomycin and ceftriaxone We will continue with the same management as per Dr. Castro from pulmonary. He prefers to have a bicarbonate of at least over the 20s, ideally 22 or 23, before discharging this patient. 2. Hyponatremia, resolved. 3. Hypokalemia, resolved. 4. Thrombocytopenia, aware. 5. Mental retardation, this is a chronic condition. 6. Physical deconditioning. Physical therapy working with this patient. cc: Ector Borrego MD
[2017-01-16] MEDS: VANCOMYCIN 1,400 MG in NS 250 ML IV SCH ×2 (12:42→22:36)
[2017-01-16] MEDS: ROCEPHIN 1 GM/NS 1 GM/50 ML IVPB IV SCH (12:45)
[2017-01-16] MEDS: ROCEPHIN IM ONE ×2 (12:49→18:43)
[2017-01-17] MEDS: FLAGYL 500 MG/NS 500 MG/100 ML IVPB IV SCH ×5 (03:33→21:35)
[2017-01-17] MEDS: DUONEB (A & A) INH SCH ×6 (03:35→23:24)
[2017-01-17] MEDS: NS 1,000 ML IV SCH ×3 (06:35→18:53)
[2017-01-17] MEDS: PROZAC PO SCH (08:10)
[2017-01-17] MEDS: PRAVACHOL PO SCH (08:11)
[2017-01-17] MEDS: TOPAMAX PO SCH ×2 (08:11→20:37)
[2017-01-17] MEDS: VITAMIN C PO SCH (08:11)
[2017-01-17] MEDS: CLARITIN PO SCH (08:11)
[2017-01-17] MEDS: SYNTHROID PO SCH (08:11)
[2017-01-17] MEDS: PRILOSEC PO SCH (08:12)
[2017-01-17] MEDS: DEPAKOTE PO SCH ×2 (08:12→20:37)
[2017-01-17] MEDS: ICOSAPENT ETHYL 1000 MG PO SCH ×2 (08:12→20:38)
[2017-01-17] MEDS: KEPPRA PO SCH ×2 (08:12→20:37)
[2017-01-17] MEDS: MIRALAX PO SCH (08:13)
[2017-01-17] MEDS: SEROQUEL PO SCH ×3 (09:00→17:55)
[2017-01-17 10:51] LABS: AGAP 10; BUN 5 mg/dL (8-22); CALCIUM 8.1 mg/dL (8.8-10.2); CHLORIDE 112 mmol/L (98-107); COSMO 278; POTASSIUM 3.4 mmol/L (3.5-5.1); SODIUM 141 mmol/L (136-145); TCO2 19 mmol/L (25-35)
[2017-01-17] MEDS: VANCOMYCIN 1,400 MG in NS 250 ML IV SCH ×2 (10:58→23:28)
[2017-01-17] MEDS: ROCEPHIN 1 GM/NS 1 GM/50 ML IVPB IV SCH (11:00)
--- NOTE | 2017-01-17 13:57 | PROGRESS NOTE ---
DATE: 01/17/2017 SUBJECTIVE: Patient is nonverbal and as per staff member from senior care where he lives, the patient is doing fine. He is more alert today. OBJECTIVE: Vital Signs: Temperature 98.3 degrees, heart rate 102, respiratory rate 18, blood pressure 97/70, O2 saturation 100% on room air. General Examination: This is a 46-year-old male with signs of mental retardation lying in bed, in no acute distress. He is more awake today. HEENT: Head is normocephalic, atraumatic. Anicteric sclerae and pale conjunctivae. Neck: Supple. No JVD noted. No carotid bruits. No lymphadenopathy. No thyromegaly. Cardiovascular: S1 and S2 heard. No murmurs, gallops, or rubs. Regular rate and rhythm. Respiratory Exam: Some crackles in both bases and rhonchi as well but patient is not using any accessory muscles or having work of breathing. Abdomen: Soft, nontender to palpation. Bowel sounds present. No organomegaly. Extremities: No clubbing, cyanosis, or edema. Peripheral pulses present in both legs. Neurological: Patient is awake but does not follow commands. LABORATORY DATA: Reviewed. ASSESSMENT AND PLAN: 1. Left lower lobe pneumonia. Patient is on vancomycin, ceftriaxone and Flagyl. As per Dr. Castro from Pulmonary his recommendation is to keep this patient in the hospital until the bicarbonate reaches at least 20 or above before discharging. 2. Hyponatremia. Resolved. 3. Hyperkalemia. Resolved. 4. Thrombocytopenia. Aware. 5. Mental retardation. That is a chronic condition. 6. Physical deconditioning. Physical therapy is working with the patient while he is here. cc: Ector Borrego MD
[2017-01-17] MEDS ORDERED: CALMOSEPTINE OINTMENT TOP PRN (19:41)
[2017-01-18] MEDS: DUONEB (A & A) INH SCH ×6 (02:29→23:04)
[2017-01-18] MEDS: FLAGYL 500 MG/NS 500 MG/100 ML IVPB IV SCH ×4 (03:27→21:26)
[2017-01-18 05:50] LABS: MANUAL DIFF NEEDED? NO
[2017-01-18 05:53] LABS: BASO% 0.5 % (0.0-0.8); EOS# 0.05 X1000 (0.0-0.7); EOS% 1.2 % (0.0-10.0); HEMATOCRIT 32.6 % (42.0-52.0); HEMOGLOBIN 10.7 g/dL (14.0-18.0); IMM GRAN# 0.02 X1000 (0.0-0.04); IMM GRAN% 0.5 % (0.0-0.5); LYMPH# 1.42 X1000 (1.2-3.4); LYMPH% 34.1 % (20.5-51.1); MCH 30.3 PG (27-31); MCHC 32.8 g/dL (33-37); MCV 92.4 FL (81-99); MONO# 0.38 X1000 (0.11-0.59); MONO% 9.1 % (1.7-9.3); MPV 9.5 FL (7.4-10.4); NEUT% 54.6 % (42.2-75.2); PLT 244 X1000 (130-400); RBC 3.53 XMIL (4.7-6.1)
[2017-01-18 06:21] LABS: AGAP 13; BUN 5 mg/dL (8-22); CALCIUM 7.9 mg/dL (8.8-10.2); CHLORIDE 112 mmol/L (98-107); COSMO 280; POTASSIUM 3.5 mmol/L (3.5-5.1); SODIUM 142 mmol/L (136-145); TCO2 17 mmol/L (25-35)
[2017-01-18] MEDS: MIRALAX PO SCH (09:58)
[2017-01-18] MEDS: VITAMIN C PO SCH (09:58)
[2017-01-18] MEDS: SYNTHROID PO SCH (09:58)
[2017-01-18] MEDS: PRAVACHOL PO SCH (09:59)
[2017-01-18] MEDS: DEPAKOTE PO SCH ×2 (09:59→21:23)
[2017-01-18] MEDS: SEROQUEL PO SCH ×3 (09:59→16:19)
[2017-01-18] MEDS: PRILOSEC PO SCH (09:59)
[2017-01-18] MEDS: KEPPRA PO SCH ×2 (09:59→21:23)
[2017-01-18] MEDS: PROZAC PO SCH (10:00)
[2017-01-18] MEDS: TOPAMAX PO SCH ×2 (10:00→21:23)
[2017-01-18] MEDS: ICOSAPENT ETHYL 1000 MG PO SCH ×2 (10:01→21:25)
[2017-01-18] MEDS: CLARITIN PO SCH (10:02)
[2017-01-18] MEDS: NS 1,000 ML IV SCH ×2 (11:44→23:26)
--- NOTE | 2017-01-18 11:46 | PROGRESS NOTE ---
DATE: 01/18/2017 SUBJECTIVE: The patient is nonverbal. According to staff from the intermediate, patient is doing fine. More alert today. OBJECTIVE: Vital Signs: Temperature 97.4 degrees, heart rate 86, respiratory rate 20, blood pressure 110/91. O2 saturation 93% on room air. General: This is a 46-year-old male, lying in bed, in no acute distress but has some mental retardation. More awake today. HEENT: Head is normocephalic, atraumatic. Dry mucous membranes. Neck: Supple. No JVD noted. No carotid bruits. Cardiovascular: S1, S2 heard. No murmurs, gallops, or rubs. Regular rate and rhythm. Respiratory: Clear bilaterally to auscultation. There is some coarse breath sounds clearly noted on the left . The patient is not using any accessory muscles or having work of breathing. Abdomen is soft and nontender to palpation. Bowel sounds are present. No organomegaly. Extremities: No clubbing, cyanosis, or edema. Peripheral pulses present in both legs. Neurological: The patient is awake but does not follow commands. He also is nonverbal. LABORATORY DATA: Reviewed. ASSESSMENT AND PLAN: 1. Left lower lobe pneumonia. Patient is on vancomycin, ceftriaxone, and Flagyl. As per Dr. Castro from Pulmonary, he wants to discharge this patient when bicarbonate reaches at least 20 or above. We will continue with the same management. 2. Hypernatremia, resolved. 3. Hyperkalemia, resolved. 4. aware. 5. Mental retardation. This is a chronic condition. 6. Physical deconditioning. Physical therapy working with this patient. cc: Ectro Borrego MD
[2017-01-18] MEDS: VANCOMYCIN 1,400 MG in NS 250 ML IV SCH (11:54)
[2017-01-18] MEDS: ROCEPHIN 1 GM/NS 1 GM/50 ML IVPB IV SCH (13:38)
[2017-01-19] MEDS: VANCOMYCIN 1,400 MG in NS 250 ML IV SCH ×3 (00:16→23:23)
[2017-01-19] MEDS: DUONEB (A & A) INH SCH ×6 (03:10→23:06)
[2017-01-19] MEDS: FLAGYL 500 MG/NS 500 MG/100 ML IVPB IV SCH ×2 (04:46→08:23)
[2017-01-19 05:33] LABS: MANUAL DIFF NEEDED? NO
[2017-01-19 05:46] LABS: BASO% 0.6 % (0.0-0.8); EOS# 0.04 X1000 (0.0-0.7); EOS% 1.1 % (0.0-10.0); HEMATOCRIT 30.8 % (42.0-52.0); HEMOGLOBIN 9.8 g/dL (14.0-18.0); IMM GRAN# 0.03 X1000 (0.0-0.04); IMM GRAN% 0.8 % (0.0-0.5); LYMPH% 33.9 % (20.5-51.1); MCH 29.8 PG (27-31); MCHC 31.8 g/dL (33-37); MCV 93.6 FL (81-99); MONO% 11.3 % (1.7-9.3); MPV 10.2 FL (7.4-10.4); NEUT% 52.3 % (42.2-75.2); PLT 202 X1000 (130-400); RBC 3.29 XMIL (4.7-6.1)
[2017-01-19 06:14] LABS: AGAP 13; BUN 7 mg/dL (8-22); CALCIUM 7.9 mg/dL (8.8-10.2); CHLORIDE 112 mmol/L (98-107); COSMO 282; POTASSIUM 3.4 mmol/L (3.5-5.1); SODIUM 143 mmol/L (136-145); TCO2 18 mmol/L (25-35)
[2017-01-19] MEDS: NS 1,000 ML IV SCH ×3 (06:19→20:49)
[2017-01-19] MEDS: SEROQUEL PO SCH ×3 (08:24→18:08)
[2017-01-19] MEDS: PRILOSEC PO SCH (08:24)
[2017-01-19] MEDS: ICOSAPENT ETHYL 1000 MG PO SCH ×2 (08:24→20:49)
[2017-01-19] MEDS: SYNTHROID PO SCH (08:24)
[2017-01-19] MEDS: KEPPRA PO SCH ×2 (08:25→20:49)
[2017-01-19] MEDS: VITAMIN C PO SCH (08:25)
[2017-01-19] MEDS: PROZAC PO SCH (08:25)
[2017-01-19] MEDS: TOPAMAX PO SCH ×2 (08:25→20:49)
[2017-01-19] MEDS: PRAVACHOL PO SCH (08:26)
[2017-01-19] MEDS: CLARITIN PO SCH (08:26)
[2017-01-19] MEDS: DEPAKOTE PO SCH ×2 (08:26→20:49)
[2017-01-19] MEDS: MIRALAX PO SCH (08:26)
--- NOTE | 2017-01-19 12:01 | PROGRESS NOTE ---
DATE: 01/19/2017 SUBJECTIVE: The patient nonverbal. Per nursing staff report, no acute issues overnight. OBJECTIVE: Vital Signs: Temperature 97.1 degrees, heart rate 98, respiratory rate 15, blood pressure 103/65, O2 saturation 93% on room air. General examination: This is a 46-year-old male, lying in bed in no acute distress with some mental retardation. More awake today. HEENT: Head is normocephalic, atraumatic. Neck: Supple. No JVD noted. No carotid bruits. No lymphadenopathy. Cardiovascular exam: S1, S2 heard. No murmurs, gallops, or rubs. Regular rate and rhythm. Respiratory exam: Clear bilaterally to auscultation. Still some coarse breath sounds present in both bases. Patient is not using any accessory muscles or having work of breathing. Abdomen: Soft, nontender to palpation. Bowel sounds present. No organomegaly. Extremities: No clubbing, cyanosis, or edema. Peripheral pulses present in both legs. Neurological exam: Patient is awake, but does not follow commands. LABORATORY DATA: Reviewed. ASSESSMENT: 1. Left lower lobe pneumonia. Patient on vancomycin and Zosyn. As per Dr. Castro from pulmonary, patient will be discharged when the CO2 reaches at least 20 or 22. We will follow his recommendations. 2. Hyponatremia, resolved. 3. Hyperkalemia, resolved. 4. Mental retardation, aware. 5. Physical deconditioning. Physical therapy working with this patient. cc: Ector Borrego MD
[2017-01-19] MEDS: ZOSYN 3.375 GM/NS 3.375 GM/50 ML IVPB IV SCH ×3 (13:11→20:49)
[2017-01-19] MEDS: SODIUM BICARBONATE PO SCH (13:21)
[2017-01-20] MEDS: ZOSYN 3.375 GM/NS 3.375 GM/50 ML IVPB IV SCH ×5 (03:06→21:27)
[2017-01-20] MEDS: DUONEB (A & A) INH SCH ×6 (03:20→23:12)
[2017-01-20] MEDS: NS 1,000 ML IV SCH ×2 (04:12→16:07)
[2017-01-20 05:19] LABS: MANUAL DIFF NEEDED? NO
[2017-01-20 05:30] LABS: BASO% 0.9 % (0.0-0.8); EOS# 0.02 X1000 (0.0-0.7); EOS% 0.6 % (0.0-10.0); HEMATOCRIT 33.2 % (42.0-52.0); HEMOGLOBIN 10.8 g/dL (14.0-18.0); IMM GRAN# 0.02 X1000 (0.0-0.04); IMM GRAN% 0.6 % (0.0-0.5); LYMPH# 1.16 X1000 (1.2-3.4); MCH 30.2 PG (27-31); MCHC 32.5 g/dL (33-37); MCV 92.7 FL (81-99); MONO# 0.44 X1000 (0.11-0.59); MONO% 13.7 % (1.7-9.3); MPV 9.8 FL (7.4-10.4); NEUT% 48.2 % (42.2-75.2); PLT 188 X1000 (130-400); RBC 3.58 XMIL (4.7-6.1)
[2017-01-20 05:55] LABS: AGAP 13; BUN 4 mg/dL (8-22); CALCIUM 8.4 mg/dL (8.8-10.2); CHLORIDE 111 mmol/L (98-107); COSMO 281; POTASSIUM 3.6 mmol/L (3.5-5.1); SODIUM 143 mmol/L (136-145); TCO2 19 mmol/L (25-35)
[2017-01-20] MEDS: DEPAKOTE PO SCH ×2 (08:24→21:18)
[2017-01-20] MEDS: PROZAC PO SCH (08:24)
[2017-01-20] MEDS: PRILOSEC PO SCH (08:24)
[2017-01-20] MEDS: SEROQUEL PO SCH ×3 (08:24→16:03)
[2017-01-20] MEDS: SODIUM BICARBONATE PO SCH (08:24)
[2017-01-20] MEDS: KEPPRA PO SCH ×2 (08:24→21:18)
[2017-01-20] MEDS: TOPAMAX PO SCH ×2 (08:24→21:19)
[2017-01-20] MEDS: MIRALAX PO SCH (08:25)
[2017-01-20] MEDS: SYNTHROID PO SCH (08:25)
[2017-01-20] MEDS: PRAVACHOL PO SCH (08:25)
[2017-01-20] MEDS: ICOSAPENT ETHYL 1000 MG PO SCH ×2 (08:27→21:58)
[2017-01-20] MEDS: VANCOMYCIN 1,400 MG in NS 250 ML IV SCH (12:07)
--- NOTE | 2017-01-20 13:08 | PROGRESS NOTE ---
DATE: 01/20/2017 SUBJECTIVE: Patient is nonverbal. According to nursing staff, no acute issues overnight. OBJECTIVE: Vital Signs: Temperature 97.1 degrees, heart rate 97, respiratory rate 20, blood pressure 111/80, O2 saturation 97% on room air. General Examination: This is a 46-year-old male, lying in bed, in no acute distress, with a history of mental retardation. HEENT: Head is normocephalic, atraumatic. Neck: Supple. No JVD noted. Cardiovascular: S1, S2 heard. No murmurs, gallops, or rubs. Regular rate and rhythm. Respiratory: Clear bilaterally to auscultation. No work of breathing or using accessory muscles. Mild coarse breath sounds in both bases. Abdomen: Soft, nontender to palpation. Bowel sounds present. No organomegaly. Extremities: No clubbing, cyanosis, or edema. Peripheral pulses present in both legs. LABORATORY DATA: Reviewed. ASSESSMENT: 1. Left lower lobe pneumonia. Patient has been on vancomycin for 17 days so we are going to stop the medication. The patient has been on Zosyn for a few days, Saturday will be day #6, so I guess we can stop the medication too. As per Dr. Castro from pulmonary, patient can be discharged when the CO2 reaches at lease in the 20s but unfortunately, he has been in the same numbers between 17 and 19 all of the time. We are going to check with him on Saturday if this patient is good to go or not. 2. Hyponatremia, resolved. 3. Hyperkalemia, resolved. 4. Mental retardation, aware. 5. Physical deconditioning, aware. 6. Overall this patient is doing good. He was admitted to the hospital because of pneumonia. We will check with Dr. Castro from pulmonary to see if this patient is good to go next Saturday and if it is okay, the patient will be discharged. cc: Ector Borrego MD
[2017-01-21] MEDS: DUONEB (A & A) INH SCH ×6 (03:09→22:54)
[2017-01-21] MEDS: VANCOMYCIN 1,400 MG in NS 250 ML IV SCH (03:11)
[2017-01-21] MEDS: ZOSYN 3.375 GM/NS 3.375 GM/50 ML IVPB IV SCH ×4 (04:52→21:27)
[2017-01-21 05:30] LABS: MANUAL DIFF NEEDED? NO
[2017-01-21 05:38] LABS: BASO% 1.2 % (0.0-0.8); EOS# 0.01 X1000 (0.0-0.7); EOS% 0.3 % (0.0-10.0); HEMATOCRIT 31.3 % (42.0-52.0); IMM GRAN# 0.02 X1000 (0.0-0.04); IMM GRAN% 0.6 % (0.0-0.5); LYMPH# 1.12 X1000 (1.2-3.4); LYMPH% 34.1 % (20.5-51.1); MCH 29.9 PG (27-31); MCHC 31.9 g/dL (33-37); MCV 93.4 FL (81-99); MONO# 0.37 X1000 (0.11-0.59); MONO% 11.3 % (1.7-9.3); MPV 9.7 FL (7.4-10.4); NEUT% 52.5 % (42.2-75.2); PLT 187 X1000 (130-400); RBC 3.35 XMIL (4.7-6.1)
[2017-01-21 05:51] LABS: AGAP 12; BUN 5 mg/dL (8-22); CALCIUM 8.1 mg/dL (8.8-10.2); CHLORIDE 113 mmol/L (98-107); COSMO 285; POTASSIUM 3.3 mmol/L (3.5-5.1); SODIUM 145 mmol/L (136-145); TCO2 20 mmol/L (25-35)
[2017-01-21] MEDS: NS 1,000 ML IV SCH (08:51)
[2017-01-21] MEDS: ICOSAPENT ETHYL 1000 MG PO SCH ×2 (10:04→21:29)
[2017-01-21] MEDS: SODIUM BICARBONATE PO SCH (10:05)
[2017-01-21] MEDS: DEPAKOTE PO SCH ×2 (10:05→21:30)
[2017-01-21] MEDS: PRILOSEC PO SCH (10:05)
[2017-01-21] MEDS: TOPAMAX PO SCH ×2 (10:06→21:30)
[2017-01-21] MEDS: PROZAC PO SCH (10:06)
[2017-01-21] MEDS: MIRALAX PO SCH (10:06)
[2017-01-21] MEDS: PRAVACHOL PO SCH (10:06)
[2017-01-21] MEDS: KEPPRA PO SCH ×2 (10:07→21:30)
[2017-01-21] MEDS: SEROQUEL PO SCH ×3 (10:07→18:49)
[2017-01-21] MEDS: SYNTHROID PO SCH (10:07)
--- NOTE | 2017-01-21 15:05 | PROGRESS NOTE ---
DATE: 01/21/2017 SUBJECTIVE: The patient was seen and examined. Caregiver was at the bedside. All questions were invited and entertained. No complaint. The patient is interactive. He has mental retardation at baseline. No other issues reported overnight. OBJECTIVE: Vital signs: Blood pressure is 114/72, pulse 87, respirations 18, temperature 98.5, saturation 100% on room air. General appearance: Pleasant, interactive and playful 46-year-old male with mental retardation. HEENT: Anicteric sclerae. Clear conjunctivae. Neck: Supple. No JVD. No bruit. Cardiovascular: S1, S2. Normal rate and rhythm. No murmurs, rubs or gallops. Pulmonary: Clear to auscultation bilaterally. GI: Soft, nontender, nondistended. Normoactive bowel sounds. Musculoskeletal: No cyanosis, clubbing or edema. DIAGNOSTIC DATA: White count is 3.28, hemoglobin 10.0, hematocrit 31.3, platelets of 187. Chemistry shows sodium 145, potassium 3.3, chloride 113, bicarb 20, BUN is 5, creatinine 0.3, glucose 83. Microbiology has remained negative thus far. C. difficile also negative. ASSESSMENT AND PLAN: This is a 46-year-old male with mental retardation, admitted to the hospital for sepsis. 1. Sepsis. Source is unclear. The patient has been on broad spectrum antibiotics. Blood pressure has improved. The patient is still on vancomycin and Zosyn. I would deescalate the antibiotics and keep him on Zosyn for now and may transition him to oral medications soon. 2. Hyperlipidemia. We will continue Pravachol. 3. Mental retardation. Continue Seroquel. 4. Seizure disorder. Continue with Topamax and Keppra as well as Depakote. 5. Code status. The patient is a full code. 6. Hypothyroidism. Continue Synthroid. 7. Hypokalemia. We will replete his potassium.
[2017-01-21] MEDS: POTASSIUM CHLORIDE 20 MEQ/SWI 20 MEQ/100 ML IVPB IV SCH ×2 (16:19→18:49)
[2017-01-22] MEDS: DUONEB (A & A) INH SCH ×3 (03:30→11:32)
[2017-01-22] MEDS: NS 1,000 ML IV SCH ×2 (04:03→06:14)
[2017-01-22] MEDS: ZOSYN 3.375 GM/NS 3.375 GM/50 ML IVPB IV SCH ×2 (04:03→09:26)
[2017-01-22 05:28] LABS: MANUAL DIFF NEEDED? NO
[2017-01-22 05:35] LABS: HEMATOCRIT 32.4 % (42.0-52.0); HEMOGLOBIN 10.5 g/dL (14.0-18.0); MCH 30.3 PG (27-31); MCHC 32.4 g/dL (33-37); MCV 93.6 FL (81-99); MPV 9.8 FL (7.4-10.4); NEUT% 59.1 % (42.2-75.2); PLT 178 X1000 (130-400); RBC 3.46 XMIL (4.7-6.1)
[2017-01-22 05:36] LABS: BASO% 0.5 % (0.0-0.8); EOS# 0.03 X1000 (0.0-0.7); EOS% 0.7 % (0.0-10.0); IMM GRAN# 0.02 X1000 (0.0-0.04); IMM GRAN% 0.5 % (0.0-0.5); LYMPH# 1.05 X1000 (1.2-3.4); LYMPH% 25.9 % (20.5-51.1); MONO# 0.54 X1000 (0.11-0.59); MONO% 13.3 % (1.7-9.3)
[2017-01-22 06:35] LABS: AGAP 12; BUN 4 mg/dL (8-22); CALCIUM 8.6 mg/dL (8.8-10.2); CHLORIDE 109 mmol/L (98-107); COSMO 279; POTASSIUM 3.8 mmol/L (3.5-5.1); SODIUM 142 mmol/L (136-145); TCO2 21 mmol/L (25-35)
[2017-01-22 07:27] VITALS: BP 101/75
[2017-01-22] MEDS: SODIUM BICARBONATE PO SCH (09:26)
[2017-01-22] MEDS: PRAVACHOL PO SCH (09:26)
[2017-01-22] MEDS: SEROQUEL PO SCH ×2 (09:27→13:17)
[2017-01-22] MEDS: PRILOSEC PO SCH (09:27)
[2017-01-22] MEDS: ICOSAPENT ETHYL 1000 MG PO SCH (09:27)
[2017-01-22] MEDS: KEPPRA PO SCH (09:27)
[2017-01-22] MEDS: TOPAMAX PO SCH (09:27)
[2017-01-22] MEDS: SYNTHROID PO SCH (09:27)
[2017-01-22] MEDS: DEPAKOTE PO SCH (09:27)
[2017-01-22] MEDS: PROZAC PO SCH (09:27)
--- NOTE | 2017-01-22 11:50 | PROGRESS NOTE ---
DATE: 01/22/2017 SUBJECTIVE: The patient continued to improve. His sister is at the bedside. All questions were invited and entertained. OBJECTIVE: Vital Signs: Blood pressure 101/75, pulse of 108, respirations 24, temperature of 98.3 degrees, saturation of 97% on 3 L nasal cannula. General Appearance: A mental retardation male in no acute distress, resting comfortably, sleeping, did not want to wake up. HEENT: Anicteric sclerae. Clear conjunctivae. Neck: Supple. No JVD. No bruit. Cardiovascular: S1 and S2. Normal rate and rhythm. No murmur, rubs, or gallops. Pulmonary: Clear to auscultation bilaterally. GI: Soft, nontender, nondistended. Normoactive bowel sounds. Musculoskeletal: No clubbing, cyanosis, or edema. Laboratory: White count 4.04, hemoglobin 10.5, hematocrit 32.4, platelets of 178,000. Chemistry: Sodium of 142, potassium of 3.8, chloride of 109, bicarb 21, BUN 4, creatinine 0.3, glucose of 87. ASSESSMENT AND PLAN: This is a 46-year-old, mental retardation male who lived in a half-way. Presented with sepsis. Sepsis. The patient has been on antibiotics for over 2 weeks now for pneumonia. We stopped antibiotics. We will discharge the patient home today. [facility]
[2017-01-22] MEDS: MIRALAX PO SCH (13:21)
--- NOTE | 2017-01-22 13:24 | DISCHARGE SUMMARY ---
ADMISSION DATE: 01/02/2017 DISCHARGE DATE: 01/22/2017 CONSULTATIONS: 1. Dr. Castro with Pulmonology. 2. Dr. Yehuda Armijo, with General Surgery. PERTINENT PROCEDURES: 1. Abdomen and pelvis CT showed nonspecific proctitis and sigmoid colitis, most likely infectious or inflammatory, left nephrolithiasis with large nonobstructing staghorn calculus on the left and left renal artery atrophy, nonspecific focal thickening of the fundus of the gallbladder. 2. Chest x-ray showed opacification of the left lung base. Possible effusion with adjacent atelectasis and/or infiltrate. 3. Pulmonary arteriogram showed no evidence of pulmonary emboli. Left upper and lower lobe pneumonia with pleural effusion. Atelectasis and questionable patchy pneumonia on the right. DISCHARGE DIAGNOSES: 1. Sepsis secondary to pneumonia. The patient received over 2 weeks of IV antibiotics. Followed by Pulmonology with Dr. Castro. Stable. 2. Hyponatremia. Resolved. 3. Hyperkalemia. Resolved. 4. Mental retardation. Aware. 5. Physical deconditioning. Aware. Patient will be discharged with home health and physical therapy. 6. Left lower lobe pneumonia. Again, patient received over 2 weeks IV antibiotics. He was followed by Dr. Castro. Improved. 7. Hyperlipidemia. Continue Pravachol. 8. Seizure disorder. Continue Topamax, Keppra, and Depakote. 9. Hypothyroidism. Continue with Synthroid. 10. Colitis. Resolved. 11. Urinary tract infection. Resolved. 12. Dehydration. Resolved. 13. Metabolic encephalopathy. Resolved. Patient is back to baseline. 14. Respiratory failure. Resolved. HOSPITAL COURSE: Mr. Dennison is a 46-year-old, male who carries a past medical history of mental retardation and lives in a jail here in [place], seizure disorder, hypertension. He was brought to the ED with a chief complaint of diarrhea that started the day prior to his admission. All his information was obtained from the jail staff. The patient had not been eating or drinking well. They also reported a seizure where the patient went limp, two of the staff members had to hold him up. Right before the seizure he had some mental status changes. He was brought to the ED. He was found to have a positive urinalysis as well as occult blood in the stool, and a pH is 7.12, with a bicarbonate of 9.3, and a lactate of 5.5. CT of the abdomen showed proctitis and sigmoid colitis and left nephrolithiasis with large nonobstructing staghorn calculus on the left. Patient was transferred to the ICU on a non-rebreather mask as well as pressors. He was admitted for sepsis most likely secondary to multiple problems including colitis, pneumonia and UTI. He was started on broad-spectrum antibiotics and continued with aggressive IV hydration as well as a bicarb drip. Of note, the patient was a DNR level 2. For possible ileus an NG tube was also placed. It appeared to be clearing. Dr. Yehuda Armijo was brought in for any possible surgery but it was resolving with the NG tube. He agreed with the Levaquin, Flagyl, and vancomycin. Dr. Castro was consulted for evaluation of his pneumonia. He agreed with antibiotics as well as chest physical therapy for difficulties with expectorations. Mr. Dennison did come off his vasopressors. He was able to be moved to a regular floor where he continued on IV antibiotics with Zosyn and vancomycin for over 2 weeks. He was closely followed by Pulmonology. Patient did have physical deconditioning while he was admitted in the hospital. Physical therapy was consulted as well as social human services assistants to see if we could set up home health and physical therapy at the jail. He will be discharged back to the jail today with [facility]. VITAL SIGNS: Temperature is 98.3 degrees, heart rate 96, respirations 16, blood pressure is 101/75, O2 is 93% on 3 L nasal cannula. DISCHARGE DIET: Mechanical soft with Ensure t.i.d. DISCHARGE MEDICATIONS: As per Dr. Brynn Alvarenga: 1. Vitamin C 250 mg p.o daily. 2. Depakote 1000 mg p.o. at bedtime. 3. Depakote 500 mg p.o. q.a.m. 4. Prozac 20 mg p.o. daily. 5. Veramyst 2 sprays nasally, daily. 6. Depakote 1000 mg p.o. b.i.d. 7. Keppra 500 mg p.o. b.i.d. 8. Synthroid 25 mcg p.o. q.a.m. 9. Claritin 10 mg p.o. daily. 10. Prilosec 40 mg p.o. daily. 11. Pravastatin 40 mg p.o. daily. 12. Seroquel 200 mg p.o. t.i.d. 13. Topamax 200 mg p.o. b.i.d. DISPOSITION: The patient is being discharged back to his jail with home health with [place] as well as home O2. FOLLOWUP: The patient will follow up with his primary care physician, Dr. Sandra Trujillo in 1-2 weeks. Patient can return to the ED for any worsening symptoms. DISCHARGE TIME: Greater than 30 minutes. Dictated by DEAN Finley for Mark Swain MD Addendum: I personally evaluated and examined the patient in conjunction to the NUCLEAR MONITORING TECHNICIAN and agreed with her assessments and disposition. ADALID
== END 2017-01-22 15:07 | disposition home health service (06) ==
LOC: P.ED 22:59 → SUATTDRO 01-02 00:46 → P.ICU 01-02 00:46 → ICU 01-06 17:06 → 4N 01-10 13:02
PROVIDERS: ATTEND Internal Medicine